=== PATIENT | male | born 1955 | race Caucasian/White ===

== ENCOUNTER 2019-09-27 09:27 | Inpatient (IN) | payer MEDICARE, MEDICAID ==
[~2019-09-27] VITALS: Ht 170.2 cm; Wt 72.0 kg
[2019-09-27] VITALS (10 sets, daily range): BP systolic 137–153; BP diastolic 49–83
[~2019-09-27 09:27] MED LIST: ASPI-1198 PO; BUME1TAB34 PO; CALC667C PO; ERGO500044 PO; METO100T14 PO; NIFE90TA45 PO; SIMV-43 PO
[2019-09-27] MEDS ORDERED: HYDR-4455 PO (10:05)
[2019-09-27] MEDS ORDERED: ACET-2247 PO (10:05)
[2019-09-27] MEDS ORDERED: FOLI0.8T22 PO (10:05)
[2019-09-27] MEDS ORDERED: ERGO500054 PO (10:05)
[2019-09-27] MEDS ORDERED: ISON300 PO (10:05)
[2019-09-27] MEDS ORDERED: LISI-662 PO (10:05)
[2019-09-27] MEDS ORDERED: LACT30L PO (10:05)
[2019-09-27] MEDS ORDERED: CLON0.1T2 PO (10:05)
[2019-09-27] MEDS ORDERED: BISA10SU11 PR (10:05)
[2019-09-27] MEDS ORDERED: SENN-2 PO (10:05)
[2019-09-27] MEDS ORDERED: AMLO10TA7 PO (10:05)
[2019-09-27] MEDS ORDERED: HYDR-2924 PO (10:05)
[2019-09-27] MEDS ORDERED: INSU100V SQ (10:05)
[2019-09-27] MEDS ORDERED: PHOSLOC PO (10:05)
[2019-09-27] MEDS ORDERED: INSLAN SQ (10:05)
[2019-09-27] MEDS ORDERED: ATOR40TA28 PO (10:05)
[2019-09-27] MEDS ORDERED: FAMO20 PO (10:05)
[2019-09-27] MEDS ORDERED: PYRI50 PO (10:05)
[2019-09-27] MEDS ORDERED: ONDA-104 PO (10:05)
[2019-09-27 10:21] LABS: BASOPHILS % (AUTO) 1.2 % (0.0-2.0); EOSINOPHILS % (AUTO) 3.9 % (1.0-6.0); LYMPHOCYTES % (AUTO) 12.1 % (22.0-44.0); MEAN CORPUSCULAR HEMOGLOBIN 31.8 pg (26.0-34.0); MEAN CORPUSCULAR HGB CONC 33.7 G/dL (31.0-37.0); MEAN CORPUSCULAR VOLUME 95 fL (80-100); MONOCYTES # (AUTO) 0.5 K/uL (0.1-1.0); MONOCYTES % (AUTO) 6.5 % (2.0-9.0); NEUTROPHILS # (AUTO) 6.4 K/uL (1.8-7.7); NEUTROPHILS % (AUTO) 76.3 % (40.0-70.0); PLATELET COUNT (AUTO) 504 K/uL (150-450); RED BLOOD CELL COUNT(AUTO) 1.87 MIL/uL (4.50-5.90); RED CELL DISTRIBUTION WIDTH 16.2 % (11.5-14.5)
[2019-09-27 10:23] LABS: CALCIUM, TOTAL 8.9 mg/dL (8.8-10.5); CREATININE 6.14 mg/dL (0.60-1.30); POTASSIUM 4.3 mmol/L (3.5-5.1)
[2019-09-27 10:24] LABS: HEMATOCRIT 17.7 % (41-53); HEMOGLOBIN 5.9 g/dL (13.5-17.5)
[2019-09-27] MEDS ORDERED: ACETAMINOPHEN 325 MG TABLET PO PRN (10:45)
[2019-09-27] MEDS ORDERED: BISACODYL 10 MG RECTAL RECTAL SUPPOSITORY PR PRN (10:45)
[2019-09-27 10:46] LABS: ALBUMIN 2.4 g/dL (3.4-5.0); BILIRUBIN,TOTAL 0.4 mg/dL (0.1-1.0); TOTAL PROTEIN, SERUM 7.8 g/dL (6.4-8.2)
[2019-09-27] MEDS ORDERED: DEXTROSE 50%-WATER 25 GM/50 ML SYRINGE IVP PRN (11:00)
[2019-09-27] MEDS ORDERED: SODIUM CHLORIDE 0.9% 250 ML IV ONE (11:55)
[2019-09-27] MEDS ORDERED: EPOETIN ALFA 10,000 UNITS/ML 2 ML VIAL SQ ONE (12:15)
[2019-09-27] MEDS ORDERED: FERROUS SULFATE 325 MG EC TABLET PO SCH (17:30)
[2019-09-27] MEDS: FERROUS SULFATE 325 MG EC TABLET PO SCH ×2 (17:45→18:49)
[2019-09-27 20:58] LABS: GLUCOMETER DEV NAME(LOC) 5N.2; GLUCOSE,POINT OF CARE 101 MG/DL (70-110)
[2019-09-27] MEDS: DOCUSATE SODIUM 100 MG CAPSULE PO SCH (21:00)
[2019-09-27] MEDS: ATORVASTATIN CALCIUM 20 MG TABLET PO SCH (21:03)
[2019-09-27 22:21] LABS: GLUCOMETER DEV NAME(LOC) 5N.2; GLUCOSE,POINT OF CARE 209 MG/DL (70-110)
[2019-09-28 04:26] VITALS: BP 157/71
[2019-09-28 07:32] LABS: GLUCOMETER DEV NAME(LOC) 5S.2A; GLUCOSE,POINT OF CARE 124 MG/DL (70-110)
[2019-09-28 07:47] VITALS: BP 155/66
[2019-09-28 08:35] LABS: BASOPHILS % (AUTO) 1.2 % (0.0-2.0); EOSINOPHILS % (AUTO) 2.6 % (1.0-6.0); HEMATOCRIT 22.8 % (41-53); HEMOGLOBIN 7.9 g/dL (13.5-17.5); MEAN CORPUSCULAR HEMOGLOBIN 31.7 pg (26.0-34.0); MEAN CORPUSCULAR HGB CONC 34.5 G/dL (31.0-37.0); MEAN CORPUSCULAR VOLUME 92 fL (80-100); MONOCYTES # (AUTO) 0.7 K/uL (0.1-1.0); MONOCYTES % (AUTO) 6.5 % (2.0-9.0); NEUTROPHILS # (AUTO) 8.2 K/uL (1.8-7.7); NEUTROPHILS % (AUTO) 79.7 % (40.0-70.0); PLATELET COUNT (AUTO) 536 K/uL (150-450); RED BLOOD CELL COUNT(AUTO) 2.49 MIL/uL (4.50-5.90); RED CELL DISTRIBUTION WIDTH 16.1 % (11.5-14.5)
[2019-09-28 08:39] LABS: CALCIUM, TOTAL 8.8 mg/dL (8.8-10.5); CREATININE 4.32 mg/dL (0.60-1.30)
[2019-09-28] MEDS: FERROUS SULFATE 325 MG EC TABLET PO SCH ×2 (08:51→12:19)
[2019-09-28] MEDS: ASPIRIN 81 MG CHEWABLE TABLET PO SCH (08:51)
[2019-09-28] MEDS: DOCUSATE SODIUM 100 MG CAPSULE PO SCH ×2 (08:51→21:30)
[2019-09-28] MEDS: AmLODIPine BESYLATE 10 MG TABLET PO SCH (08:51)
[2019-09-28] MEDS ORDERED: FAMOTIDINE 20 MG TABLET PO SCH (09:00)
[2019-09-28 11:18] VITALS: BP 153/72
[2019-09-28] MEDS: INSULIN LISPRO 100 UNITS/ML SQ PRN ×2 (12:28→21:44)
[2019-09-28 16:05] VITALS: BP 153/60
[2019-09-28 19:38] VITALS: BP 138/69
[2019-09-28] MEDS: ATORVASTATIN CALCIUM 20 MG TABLET PO SCH (21:30)
[2019-09-29 00:20] VITALS: BP 152/78
[2019-09-29 01:53] LABS: GLUCOMETER DEV NAME(LOC) 5N.2; GLUCOSE,POINT OF CARE 173 MG/DL (70-110)
[2019-09-29 01:53] LABS: GLUCOMETER DEV NAME(LOC) 5N.2; GLUCOSE,POINT OF CARE 217 MG/DL (70-110)
[2019-09-29 05:17] VITALS: BP 153/69
[2019-09-29 07:14] LABS: BASOPHILS % (AUTO) 0.8 % (0.0-2.0); EOSINOPHILS % (AUTO) 3.1 % (1.0-6.0); HEMATOCRIT 22.5 % (41-53); HEMOGLOBIN 7.6 g/dL (13.5-17.5); LYMPHOCYTES # (AUTO) 1.1 K/uL (1.0-4.8); LYMPHOCYTES % (AUTO) 9.6 % (22.0-44.0); MEAN CORPUSCULAR HGB CONC 33.8 G/dL (31.0-37.0); MEAN CORPUSCULAR VOLUME 92 fL (80-100); MONOCYTES # (AUTO) 0.8 K/uL (0.1-1.0); MONOCYTES % (AUTO) 6.6 % (2.0-9.0); NEUTROPHILS # (AUTO) 9.1 K/uL (1.8-7.7); NEUTROPHILS % (AUTO) 79.9 % (40.0-70.0); PLATELET COUNT (AUTO) 495 K/uL (150-450); RED BLOOD CELL COUNT(AUTO) 2.45 MIL/uL (4.50-5.90); RED CELL DISTRIBUTION WIDTH 16.5 % (11.5-14.5)
[2019-09-29 07:32] VITALS: BP 163/77
[2019-09-29] MEDS ORDERED: SODIUM CHLORIDE 0.9% 1,000 ML ONE (08:16)
[2019-09-29 09:34] LABS: INR 1.2 (0.9-1.1); PROTHROMBIN TIME 11.7 SEC (9.4-11.6)
[2019-09-29] MEDS ORDERED: OMEPRAZOLE 20 MG CAPSULE PO SCH (10:15)
[2019-09-29] MEDS ORDERED: SODIUM CHLORIDE 0.9% 2,000 ML ONE (11:35)
[2019-09-29] MEDS ORDERED: PROPOFOL 1% 20 ML VIAL IVP ONE (12:00)
[2019-09-29] MEDS ORDERED: LIDOCAINE/PF 2% 5 ML SYRINGE IVP ONE (12:00)
[2019-09-29 12:11] VITALS: BP 142/78
[2019-09-29] MEDS: AmLODIPine BESYLATE 10 MG TABLET PO SCH (15:03)
[2019-09-29] MEDS: DOCUSATE SODIUM 100 MG CAPSULE PO SCH (15:54)
[2019-09-29] MEDS: ASPIRIN 81 MG CHEWABLE TABLET PO SCH (15:56)
[2019-09-29 19:59] LABS: GLUCOMETER DEV NAME(LOC) 5S.2A; GLUCOSE,POINT OF CARE 110 MG/DL (70-110)
[2019-09-29 19:59] LABS: GLUCOMETER DEV NAME(LOC) 5S.2A; GLUCOSE,POINT OF CARE 230 MG/DL (70-110)
[2019-09-29 20:00] LABS: GLUCOMETER DEV NAME(LOC) 5S.2A; GLUCOSE,POINT OF CARE 126 MG/DL (70-110)
[2019-10-01] MEDS ORDERED: EPOETIN ALFA 10,000 UNITS/ML VIAL SQ SCH (09:00)
== END 2019-09-29 17:15 | DRG 377 ==
LOC: EMS 09:30 → AHU 12:29 → ICU 15:03 → 5S 16:42
PROVIDERS: ADMIT Internal Medicine; ATTEND Internal Medicine
PROC: 30233N1 Transfusion of Nonautologous Red Blood Cells into Peripheral Vein, Percutaneous Approach (ICD-10-PCS; 2019-09-27)
PROC: 0DB98ZZ Excision of Duodenum, Via Natural or Artificial Opening Endoscopic (ICD-10-PCS; principal; 2019-09-29 09:45)
DX: K29.01 Acute gastritis with bleeding (principal); N18.6 End stage renal disease; E43 Unspecified severe protein-calorie malnutrition; I12.0 Hypertensive chronic kidney disease with stage 5 chronic kidney disease or end stage renal disease; N25.81 Secondary hyperparathyroidism of renal origin; D63.1 Anemia in chronic kidney disease; I25.10 Atherosclerotic heart disease of native coronary artery without angina pectoris; E11.51 Type 2 diabetes mellitus with diabetic peripheral angiopathy without gangrene; E11.22 Type 2 diabetes mellitus with diabetic chronic kidney disease; E11.319 Type 2 diabetes mellitus with unspecified diabetic retinopathy without macular edema; E78.00 Pure hypercholesterolemia, unspecified; E78.5 Hyperlipidemia, unspecified; K59.00 Constipation, unspecified; K31.7 Polyp of stomach and duodenum; Z79.4 Long term (current) use of insulin; Z83.3 Family history of diabetes mellitus; Z86.73 Personal history of transient ischemic attack (TIA), and cerebral infarction without residual deficits; Z89.511 Acquired absence of right leg below knee; Z89.512 Acquired absence of left leg below knee; Z91.81 History of falling; Z99.2 Dependence on renal dialysis; Z68.24 Body mass index [BMI] 24.0-24.9, adult; D64.9 Anemia, unspecified
CPT/HCPCS: 36430; 82271; 86850; 86900; 86901; 86920; 87081; 87340; 88305; 88312; 88313; 93005; J0885; J2704; J3490; J7030; J7050; P9016

== ENCOUNTER → 2020-07-07 | Outpatient (CLI) | payer MEDICARE, MEDICAID ==
[~2020-07-07] MED LIST changes: +ACET-2865 PO; +AMLO-258 PO; +ATOR40TA28 PO; +BISA10SU11 PR; -BUME1TAB34 PO; -CALC667C PO; +CLON0.1T83 PO; -ERGO500044 PO; +ERGO500054 PO; +FAMO20 PO; +FOLI0.8T22 PO; +HYDR-2924 PO; +HYDR-4455 PO; +INSLAN SQ; +INSU100V SQ; +ISON300 PO; +LACT30L PO; +LISI-662 PO; -METO100T14 PO; -NIFE90TA45 PO; +ONDA-104 PO; +PHOSLOC PO; +PYRI50 PO; +SENN-2 PO; -SIMV-43 PO
== END | disposition home or self-care (01) ==
LOC: HBOWC 08:46
PROVIDERS: ATTEND Surgery Plastic and Reconstructive Surgery
DX: S61.205A Unspecified open wound of left ring finger without damage to nail, initial encounter (principal); E11.22 Type 2 diabetes mellitus with diabetic chronic kidney disease; I12.0 Hypertensive chronic kidney disease with stage 5 chronic kidney disease or end stage renal disease; N18.6 End stage renal disease; D63.1 Anemia in chronic kidney disease; E78.5 Hyperlipidemia, unspecified; E11.51 Type 2 diabetes mellitus with diabetic peripheral angiopathy without gangrene; R26.9 Unspecified abnormalities of gait and mobility; E11.319 Type 2 diabetes mellitus with unspecified diabetic retinopathy without macular edema; E43 Unspecified severe protein-calorie malnutrition; Z68.22 Body mass index [BMI] 22.0-22.9, adult; Z79.82 Long term (current) use of aspirin; Z79.4 Long term (current) use of insulin; Z89.512 Acquired absence of left leg below knee; Z89.511 Acquired absence of right leg below knee; Z99.2 Dependence on renal dialysis; Z87.891 Personal history of nicotine dependence; Z86.73 Personal history of transient ischemic attack (TIA), and cerebral infarction without residual deficits; W22.8XXA Striking against or struck by other objects, initial encounter; Y93.89 Activity, other specified; Y92.89 Other specified places as the place of occurrence of the external cause; Y99.8 Other external cause status
CPT/HCPCS: 11044; G0463

== ENCOUNTER → 2020-07-14 | Outpatient (CLI) | payer MEDICARE, MEDICAID | END | disposition home or self-care (01) | LOC: HBOWC 08:38 | PROVIDERS: ATTEND Surgery Plastic and Reconstructive Surgery | DX: S61.205D Unspecified open wound of left ring finger without damage to nail, subsequent encounter (principal); E11.22 Type 2 diabetes mellitus with diabetic chronic kidney disease; I12.0 Hypertensive chronic kidney disease with stage 5 chronic kidney disease or end stage renal disease; N18.6 End stage renal disease; D63.1 Anemia in chronic kidney disease; E78.5 Hyperlipidemia, unspecified; E11.51 Type 2 diabetes mellitus with diabetic peripheral angiopathy without gangrene; R26.9 Unspecified abnormalities of gait and mobility; E11.319 Type 2 diabetes mellitus with unspecified diabetic retinopathy without macular edema; E43 Unspecified severe protein-calorie malnutrition; Z68.22 Body mass index [BMI] 22.0-22.9, adult; Z79.82 Long term (current) use of aspirin; Z79.4 Long term (current) use of insulin; Z89.512 Acquired absence of left leg below knee; Z89.511 Acquired absence of right leg below knee; Z99.2 Dependence on renal dialysis; Z87.891 Personal history of nicotine dependence; Z86.73 Personal history of transient ischemic attack (TIA), and cerebral infarction without residual deficits; W22.8XXD Striking against or struck by other objects, subsequent encounter | CPT/HCPCS: G0463; Z7500 ==

== ENCOUNTER → 2020-07-14 | Outpatient (CLI) | payer MEDICARE, MEDICAID | END | disposition home or self-care (01) | LOC: RADPV 10:27 | PROVIDERS: ATTEND Surgery Plastic and Reconstructive Surgery | DX: S61.205A Unspecified open wound of left ring finger without damage to nail, initial encounter (principal); R22.32 Localized swelling, mass and lump, left upper limb; X58.XXXA Exposure to other specified factors, initial encounter; Y93.89 Activity, other specified; Y92.89 Other specified places as the place of occurrence of the external cause; Y99.8 Other external cause status | CPT/HCPCS: 73130-TC ==

== ENCOUNTER → 2020-07-21 | Outpatient (CLI) | payer MEDICARE, MEDICAID | END | disposition home or self-care (01) | LOC: HBOWC 09:04 | PROVIDERS: ATTEND Surgery Plastic and Reconstructive Surgery | DX: S61.205D Unspecified open wound of left ring finger without damage to nail, subsequent encounter (principal); E11.22 Type 2 diabetes mellitus with diabetic chronic kidney disease; I12.0 Hypertensive chronic kidney disease with stage 5 chronic kidney disease or end stage renal disease; N18.6 End stage renal disease; D63.1 Anemia in chronic kidney disease; E78.5 Hyperlipidemia, unspecified; E11.51 Type 2 diabetes mellitus with diabetic peripheral angiopathy without gangrene; R26.9 Unspecified abnormalities of gait and mobility; E11.319 Type 2 diabetes mellitus with unspecified diabetic retinopathy without macular edema; E43 Unspecified severe protein-calorie malnutrition; Z68.22 Body mass index [BMI] 22.0-22.9, adult; Z79.82 Long term (current) use of aspirin; Z79.4 Long term (current) use of insulin; Z89.512 Acquired absence of left leg below knee; Z89.511 Acquired absence of right leg below knee; Z99.2 Dependence on renal dialysis; Z87.891 Personal history of nicotine dependence; Z86.73 Personal history of transient ischemic attack (TIA), and cerebral infarction without residual deficits; W22.8XXD Striking against or struck by other objects, subsequent encounter | CPT/HCPCS: 11043 ==

== ENCOUNTER → 2020-08-04 | Outpatient (CLI) | payer MEDICARE, MEDICAID | END | disposition home or self-care (01) | LOC: HBOWC 08:49 | PROVIDERS: ATTEND Surgery Plastic and Reconstructive Surgery | DX: S61.205D Unspecified open wound of left ring finger without damage to nail, subsequent encounter (principal); E11.622 Type 2 diabetes mellitus with other skin ulcer; L98.495 Non-pressure chronic ulcer of skin of other sites with muscle involvement without evidence of necrosis; E11.51 Type 2 diabetes mellitus with diabetic peripheral angiopathy without gangrene; E11.22 Type 2 diabetes mellitus with diabetic chronic kidney disease; I12.0 Hypertensive chronic kidney disease with stage 5 chronic kidney disease or end stage renal disease; N18.6 End stage renal disease; D63.1 Anemia in chronic kidney disease; E78.5 Hyperlipidemia, unspecified; E11.319 Type 2 diabetes mellitus with unspecified diabetic retinopathy without macular edema; Z79.82 Long term (current) use of aspirin; Z99.2 Dependence on renal dialysis; Z87.891 Personal history of nicotine dependence; Z79.4 Long term (current) use of insulin; Z86.73 Personal history of transient ischemic attack (TIA), and cerebral infarction without residual deficits; Z89.511 Acquired absence of right leg below knee; Z89.512 Acquired absence of left leg below knee; W22.8XXD Striking against or struck by other objects, subsequent encounter | CPT/HCPCS: 11043 ==

== ENCOUNTER → 2020-08-18 | Outpatient (CLI) | payer MEDICARE, MEDICAID ==
[~2020-08-18] MED LIST changes: +ACETAMINOPHEN 325 MG TABLET ONE; +LIDOCAINE 2% 5 ML JELLY ONE
== END | disposition home or self-care (01) ==
LOC: HBOWC 08:56
PROVIDERS: ATTEND Surgery Plastic and Reconstructive Surgery
DX: S61.205D Unspecified open wound of left ring finger without damage to nail, subsequent encounter (principal); E11.622 Type 2 diabetes mellitus with other skin ulcer; L98.495 Non-pressure chronic ulcer of skin of other sites with muscle involvement without evidence of necrosis; E11.51 Type 2 diabetes mellitus with diabetic peripheral angiopathy without gangrene; E11.22 Type 2 diabetes mellitus with diabetic chronic kidney disease; I13.0 Hypertensive heart and chronic kidney disease with heart failure and stage 1 through stage 4 chronic kidney disease, or unspecified chronic kidney disease; N18.6 End stage renal disease; I12.0 Hypertensive chronic kidney disease with stage 5 chronic kidney disease or end stage renal disease; D63.1 Anemia in chronic kidney disease; E78.5 Hyperlipidemia, unspecified; H53.8 Other visual disturbances; R26.9 Unspecified abnormalities of gait and mobility; E11.319 Type 2 diabetes mellitus with unspecified diabetic retinopathy without macular edema; E43 Unspecified severe protein-calorie malnutrition; Z68.22 Body mass index [BMI] 22.0-22.9, adult; Z99.2 Dependence on renal dialysis; Z87.891 Personal history of nicotine dependence; Z79.4 Long term (current) use of insulin; Z79.82 Long term (current) use of aspirin; Z86.73 Personal history of transient ischemic attack (TIA), and cerebral infarction without residual deficits; Z89.511 Acquired absence of right leg below knee; Z89.512 Acquired absence of left leg below knee; W22.8XXD Striking against or struck by other objects, subsequent encounter
CPT/HCPCS: 11043; Z7610

== ENCOUNTER 2020-08-24 19:22 | Inpatient (IN) | payer MEDICARE, MEDICAID ==
[~2020-08-24] VITALS: Ht 172.7 cm; Wt 59.0 kg
[~2020-08-24 19:22] MED LIST changes: -ACETAMINOPHEN 325 MG TABLET ONE; -CLON0.1T83 PO; -HYDR-2924 PO; -INSLAN SQ; -LIDOCAINE 2% 5 ML JELLY ONE; -LISI-662 PO
[2020-08-24] MEDS ORDERED: PIPERACILLIN/TAZO 3.375 GM/D5W 50 ML IV ONE (20:45)
[2020-08-24] MEDS ORDERED: ACETAMINOPHEN 325 MG TABLET PO PRN ×2 (20:45→21:15)
[2020-08-24] MEDS ORDERED: 0.9% SODIUM CHLORIDE 10 ML SYRINGE IVP PRN (20:45)
[2020-08-24] MEDS ORDERED: ONDANSETRON HCL 4 MG/2 ML VIAL IVP PRN ×2 (20:45→21:15)
[2020-08-24 20:49] LABS: CALCIUM, TOTAL 9.4 mg/dL (8.8-10.5); CREATININE 5.42 mg/dL (0.60-1.30); POTASSIUM 4.2 mmol/L (3.5-5.1)
[2020-08-24 20:56] LABS: ALBUMIN 3.5 g/dL (3.4-5.0); BILIRUBIN,TOTAL 0.4 mg/dL (0.1-1.0); TOTAL PROTEIN, SERUM 8.8 g/dL (6.4-8.2)
[2020-08-24 20:57] LABS: BASOPHILS % (AUTO) 0.7 % (0.0-2.0); EOSINOPHILS % (AUTO) 2.8 % (1.0-6.0); HEMATOCRIT 30.1 % (41-53); HEMOGLOBIN 9.8 g/dL (13.5-17.5); LYMPHOCYTES % (AUTO) 8.8 % (22.0-44.0); MEAN CORPUSCULAR HEMOGLOBIN 31.2 pg (26.0-34.0); MEAN CORPUSCULAR HGB CONC 32.6 G/dL (31.0-37.0); MEAN CORPUSCULAR VOLUME 96 fL (80-100); MONOCYTES % (AUTO) 8.5 % (2.0-9.0); NEUTROPHILS # (AUTO) 8.9 K/uL (1.8-7.7); NEUTROPHILS % (AUTO) 79.2 % (40.0-70.0); PLATELET COUNT (AUTO) 299 K/uL (150-450); RED BLOOD CELL COUNT(AUTO) 3.14 MIL/uL (4.50-5.90); RED CELL DISTRIBUTION WIDTH 17.6 % (11.5-14.5)
[2020-08-24 21:03] LABS: LACTIC ACID 0.7 mmol/L (0.4-2.0)
[2020-08-24] MEDS ORDERED: ENALAPRILAT DIHYDRATE 1.25 MG/ML VIAL IVP PRN (21:15)
[2020-08-24] MEDS ORDERED: MAGNESIUM HYDROXIDE SUSPENSION 30 ML UDCUP PO PRN (21:15)
[2020-08-24] MEDS ORDERED: BISACODYL 10 MG RECTAL RECTAL SUPPOSITORY PR PRN (21:15)
[2020-08-24] MEDS ORDERED: ZOLPIDEM TARTRATE 5 MG TABLET PO PRN (21:15)
[2020-08-24 21:19] LABS: PROTHROMBIN TIME 10.3 SEC (9.4-11.6)
[2020-08-24 21:32] LABS: COVID AG,FIA SOURCE NASOPHARYNGEAL
[2020-08-25] MEDS: HEPARIN SODIUM,PORCINE 5,000 UNITS/ML VIAL SQ SCH ×4 (00:31→23:23)
[2020-08-25] MEDS: HYDROCODONE/ACETAMINOPHEN 5-325 MG TABLET PO PRN ×2 (00:32→09:53)
[2020-08-25 04:20] VITALS: BP 155/62
[2020-08-25] MEDS: PIPERACILLIN SODIUM/TAZOBACTAM 2.25 GM in DEXTROSE 5%-WATER 50 ML IV SCH ×3 (04:37→21:39)
[2020-08-25] MEDS: MORPHINE SULFATE 2 MG/ML SYRINGE IVP PRN ×2 (05:44→11:42)
[2020-08-25 05:53] LABS: GLUCOMETER DEV NAME(LOC) 5N.3; GLUCOSE,POINT OF CARE 139 MG/DL (70-110)
[2020-08-25 07:44] VITALS: BP 153/55
[2020-08-25] MEDS: HydrALAZINE HCL 50 MG TABLET PO SCH ×3 (08:36→20:38)
[2020-08-25] MEDS: AmLODIPine BESYLATE 10 MG TABLET PO SCH (08:36)
[2020-08-25] MEDS: LISINOPRIL 20 MG TABLET PO SCH (08:36)
[2020-08-25] MEDS: CALCIUM ACETATE 667 MG CAPSULE PO SCH ×3 (08:37→18:08)
[2020-08-25] MEDS: ASPIRIN 81 MG CHEWABLE TABLET PO SCH (08:37)
[2020-08-25] MEDS: DOCUSATE SODIUM 100 MG CAPSULE PO SCH ×2 (08:37→20:38)
[2020-08-25] MEDS: ISONIAZID 300 MG TABLET PO SCH (08:37)
[2020-08-25] MEDS: PANTOPRAZOLE SODIUM 40 MG DR TABLET PO SCH (08:37)
[2020-08-25] MEDS: PYRIDOXINE HCL 50 MG TABLET PO SCH (08:37)
[2020-08-25] MEDS: CloNIDine HCL 0.1 MG TABLET PO SCH ×2 (08:37→20:38)
[2020-08-25] MEDS ORDERED: ATOR-2 PO (11:12)
[2020-08-25] MEDS ORDERED: LISI40TA4 PO (11:12)
[2020-08-25] MEDS ORDERED: ERGO500054 PO (11:12)
[2020-08-25 11:20] VITALS: BP 158/50
[2020-08-25] MEDS ORDERED: DEXTROSE 50%-WATER 25 GM/50 ML SYRINGE IVP PRN (12:00)
[2020-08-25] MEDS: VITAMIN B COMP/VIT C/FOLIC ACID CAPSULE PO SCH (12:23)
[2020-08-25] MEDS: INSULIN LISPRO 100 UNITS/ML SQ PRN ×3 (12:33→20:40)
[2020-08-25 15:17] VITALS: BP 139/45
[2020-08-25] MEDS: HYDROmorphone 2 MG/ML SYRINGE IVP PRN ×2 (15:49→21:39)
[2020-08-25] MEDS ORDERED: SODIUM CHLORIDE 0.9% 500 ML IV ONE (20:19)
[2020-08-25 20:25] VITALS: BP 181/61
[2020-08-25] MEDS: INSULIN GLARGINE,HUM.REC.ANLOG 100 UNITS/ML SQ SCH (20:39)
[2020-08-25 20:54] LABS: GLUCOMETER DEV NAME(LOC) 5N.3; GLUCOSE,POINT OF CARE 203 MG/DL (70-110)
[2020-08-25 20:55] LABS: GLUCOMETER DEV NAME(LOC) 5N.3; GLUCOSE,POINT OF CARE 165 MG/DL (70-110)
[2020-08-25 23:25] VITALS: BP 135/70
[2020-08-26] VITALS (7 sets, daily range): BP systolic 144–179; BP diastolic 45–73
[2020-08-26 00:05] LABS: GLUCOMETER DEV NAME(LOC) 6N.2; GLUCOSE,POINT OF CARE 218 MG/DL (70-110)
[2020-08-26] MEDS: PIPERACILLIN SODIUM/TAZOBACTAM 2.25 GM in DEXTROSE 5%-WATER 50 ML IV SCH ×3 (05:41→20:16)
[2020-08-26 06:20] LABS: GLUCOMETER DEV NAME(LOC) 6S.1; GLUCOSE,POINT OF CARE 114 MG/DL (70-110)
[2020-08-26 07:02] LABS: CALCIUM, TOTAL 9.6 mg/dL (8.8-10.5); CREATININE 7.83 mg/dL (0.60-1.30); PHOSPHORUS 5.4 mg/dL (2.5-4.9); POTASSIUM 4.9 mmol/L (3.5-5.1)
[2020-08-26] MEDS: DOCUSATE SODIUM 100 MG CAPSULE PO SCH ×2 (08:16→20:17)
[2020-08-26] MEDS: HYDROCODONE/ACETAMINOPHEN 5-325 MG TABLET PO PRN ×3 (08:17→20:16)
[2020-08-26] MEDS: HEPARIN SODIUM,PORCINE 5,000 UNITS/ML VIAL SQ SCH ×3 (08:17→23:08)
[2020-08-26] MEDS: VITAMIN B COMP/VIT C/FOLIC ACID CAPSULE PO SCH (08:18)
[2020-08-26] MEDS: CALCIUM ACETATE 667 MG CAPSULE PO SCH ×3 (08:18→18:52)
[2020-08-26] MEDS: PYRIDOXINE HCL 50 MG TABLET PO SCH (08:18)
[2020-08-26] MEDS: ISONIAZID 300 MG TABLET PO SCH (08:19)
[2020-08-26] MEDS: HYDROmorphone 2 MG/ML SYRINGE IVP PRN ×3 (08:40→21:30)
[2020-08-26] MEDS: ASPIRIN 81 MG CHEWABLE TABLET PO SCH (08:40)
[2020-08-26] MEDS: PANTOPRAZOLE SODIUM 40 MG DR TABLET PO SCH (08:40)
[2020-08-26] MEDS: LISINOPRIL 20 MG TABLET PO SCH (09:00)
[2020-08-26] MEDS: HydrALAZINE HCL 50 MG TABLET PO SCH ×3 (09:00→21:22)
[2020-08-26] MEDS: AmLODIPine BESYLATE 10 MG TABLET PO SCH (09:00)
[2020-08-26] MEDS: CloNIDine HCL 0.1 MG TABLET PO SCH ×2 (09:00→21:22)
[2020-08-26] MEDS: INSULIN LISPRO 100 UNITS/ML SQ PRN ×3 (12:09→21:27)
[2020-08-26 14:48] LABS: GLUCOMETER DEV NAME(LOC) 6S.1; GLUCOSE,POINT OF CARE 152 MG/DL (70-110)
[2020-08-26 20:26] LABS: GLUCOMETER DEV NAME(LOC) 6S.1; GLUCOSE,POINT OF CARE 168 MG/DL (70-110)
[2020-08-26] MEDS: INSULIN GLARGINE,HUM.REC.ANLOG 100 UNITS/ML SQ SCH (21:27)
[2020-08-27] MEDS: HYDROmorphone 2 MG/ML SYRINGE IVP PRN ×3 (03:13→16:34)
[2020-08-27] MEDS: PIPERACILLIN SODIUM/TAZOBACTAM 2.25 GM in DEXTROSE 5%-WATER 50 ML IV SCH ×2 (05:02→13:09)
[2020-08-27 05:40] VITALS: BP 159/56
[2020-08-27] MEDS ORDERED: SODIUM CHLORIDE 0.9% 1,000 ML ONE (05:42)
[2020-08-27 06:05] LABS: GLUCOMETER DEV NAME(LOC) 6N.2; GLUCOSE,POINT OF CARE 200 MG/DL (70-110)
[2020-08-27 06:05] LABS: GLUCOMETER DEV NAME(LOC) 6S.1; GLUCOSE,POINT OF CARE 132 MG/DL (70-110)
[2020-08-27] MEDS ORDERED: SODIUM CHLORIDE 0.9% 1,000 ML IV ONE (06:30)
[2020-08-27] MEDS ORDERED: BUPIVACAINE HCL/PF 0.25% 30 ML VIAL ONE (06:56)
[2020-08-27] MEDS ORDERED: MEPERIDINE-PF 25 MG/ML VIAL IVP PRN (07:00)
[2020-08-27] MEDS ORDERED: FentaNYL CITRATE-PF 100 MCG/2 ML VIAL IVP PRN (07:00)
[2020-08-27] MEDS ORDERED: HYDROmorphone 2 MG/ML SYRINGE IVP PRN (07:00)
[2020-08-27] MEDS ORDERED: POVIDONE-IODINE 30 GM OINTMENT TP ONE (07:58)
[2020-08-27] MEDS ORDERED: OXYGEN THERAPY IH SCH (08:00)
[2020-08-27 09:00] VITALS: BP 169/69
[2020-08-27] MEDS ORDERED: EPOETIN ALFA 10,000 UNITS/ML 2 ML VIAL SQ SCH (09:00)
[2020-08-27] MEDS: ASPIRIN 81 MG CHEWABLE TABLET PO SCH (09:40)
[2020-08-27] MEDS: CloNIDine HCL 0.1 MG TABLET PO SCH (09:40)
[2020-08-27] MEDS: ISONIAZID 300 MG TABLET PO SCH (09:41)
[2020-08-27] MEDS: PYRIDOXINE HCL 50 MG TABLET PO SCH (09:41)
[2020-08-27] MEDS: VITAMIN B COMP/VIT C/FOLIC ACID CAPSULE PO SCH (09:41)
[2020-08-27] MEDS: AmLODIPine BESYLATE 10 MG TABLET PO SCH (09:41)
[2020-08-27] MEDS: CALCIUM ACETATE 667 MG CAPSULE PO SCH ×2 (09:41→13:08)
[2020-08-27] MEDS: PANTOPRAZOLE SODIUM 40 MG DR TABLET PO SCH (09:42)
[2020-08-27] MEDS: HydrALAZINE HCL 50 MG TABLET PO SCH ×2 (09:42→17:09)
[2020-08-27] MEDS: HEPARIN SODIUM,PORCINE 5,000 UNITS/ML VIAL SQ SCH ×3 (09:42→16:00)
[2020-08-27] MEDS: LISINOPRIL 20 MG TABLET PO SCH (09:42)
[2020-08-27] MEDS: DOCUSATE SODIUM 100 MG CAPSULE PO SCH (09:43)
[2020-08-27 11:42] LABS: GLUCOMETER DEV NAME(LOC) 6N.2; GLUCOSE,POINT OF CARE 146 MG/DL (70-110)
[2020-08-27] MEDS: INSULIN LISPRO 100 UNITS/ML SQ PRN (11:45)
[2020-08-27] MEDS ORDERED: FentaNYL CITRATE-PF 100 MCG/2 ML VIAL IVP ONE (12:00)
[2020-08-27] MEDS ORDERED: MIDAZOLAM HCL 2 MG/2 ML VIAL IVP ONE (12:00)
[2020-08-27] MEDS ORDERED: 0.9% SODIUM CHLORIDE 10 ML VIAL IVP ONE (12:00)
[2020-08-27] MEDS ORDERED: LIDOCAINE/PF 2% 5 ML VIAL INJ ONE (12:00)
[2020-08-27] MEDS ORDERED: PROPOFOL 1% 20 ML VIAL IVP ONE (12:00)
[2020-08-27] MEDS ORDERED: CEPH-582 PO (14:07)
[2020-08-27] MEDS: HYDROCODONE/ACETAMINOPHEN 5-325 MG TABLET PO PRN (14:53)
[2020-08-27 16:10] VITALS: BP 130/38
[2020-08-27 17:36] LABS: GLUCOMETER DEV NAME(LOC) 6N.2; GLUCOSE,POINT OF CARE 134 MG/DL (70-110)
[2020-09-23] MEDS ORDERED: ERGOCALCIFEROL (VIT D2) 50,000 UNITS [1,250 MCG] CAPSULE PO SCH ×2 (09:00)
[2020-09-28] MEDS ORDERED: ERGOCALCIFEROL (VIT D2) 50,000 UNITS [1,250 MCG] CAPSULE PO SCH (09:00)
== END 2020-08-27 18:00 | disposition home health service (06) | DRG 255 ==
LOC: EMS 19:22 → 5S 20:36 → 6N 08-25 19:34
PROVIDERS: ADMIT Internal Medicine; ATTEND Internal Medicine
PROC: 5A1D70Z Performance of Urinary Filtration, Intermittent, Less than 6 Hours Per Day (ICD-10-PCS; 2020-08-25)
PROC: 5A1D70Z Performance of Urinary Filtration, Intermittent, Less than 6 Hours Per Day (ICD-10-PCS; 2020-08-27)
PROC: 0X6T0Z1 Detachment at Left Ring Finger, High, Open Approach (ICD-10-PCS; principal; 2020-08-27 07:30)
DX: E11.52 Type 2 diabetes mellitus with diabetic peripheral angiopathy with gangrene (principal); N18.6 End stage renal disease; I12.0 Hypertensive chronic kidney disease with stage 5 chronic kidney disease or end stage renal disease; I96 Gangrene, not elsewhere classified; E11.22 Type 2 diabetes mellitus with diabetic chronic kidney disease; E11.65 Type 2 diabetes mellitus with hyperglycemia; D63.8 Anemia in other chronic diseases classified elsewhere; E55.9 Vitamin D deficiency, unspecified; Z99.3 Dependence on wheelchair; Z99.2 Dependence on renal dialysis; Z89.512 Acquired absence of left leg below knee; Z89.511 Acquired absence of right leg below knee; Z79.899 Other long term (current) drug therapy; Z03.818 Encounter for observation for suspected exposure to other biological agents ruled out
CPT/HCPCS: 83605; 84100; 87040; 87070; 87081; 87340; 87426; 93005; 99291; G0378; J0690; J0885; J1170; J1644; J1815; J2250; J2270; J2405; J2543; J2704; J3010; J3490; J7030; J7040; J7060; 36415-L1; 36415-TC; 71045-TC

== ENCOUNTER 2020-11-05 12:44 | Inpatient (IN) | payer MEDICARE, MEDICAID ==
[~2020-11-05] VITALS: Ht 175.3 cm; Wt 70.7 kg
[~2020-11-05 12:44] MED LIST changes: -ASPI-1198 PO; +ASPI-728 PO; -BISA10SU11 PR; +CARV12 PO; -FOLI0.8T22 PO; -HYDR-4455 PO; -ISON300 PO; -LACT30L PO; -ONDA-104 PO; -PYRI50 PO; -SENN-2 PO
[2020-11-05] MEDS ORDERED: FentaNYL CITRATE PF 100 MCG/2 ML VIAL IVP ONE ×2 (14:00→14:30)
[2020-11-05] MEDS ORDERED: HYDROmorphone 2 MG/ML VIAL IVP ONE (14:30)
[2020-11-05] MEDS ORDERED: ONDANSETRON HCL 4 MG/2 ML VIAL IVP ONE (15:45)
[2020-11-05 16:19] LABS: COVID AG,FIA SOURCE NASOPHARYNGEAL
[2020-11-05 16:20] LABS: BASOPHILS % (AUTO) 0.8 % (0.0-2.0); EOSINOPHILS % (AUTO) 0.6 % (1.0-6.0); LYMPHOCYTES # (AUTO) 0.6 K/uL (1.0-4.8); LYMPHOCYTES % (AUTO) 6.8 % (22.0-44.0); MEAN CORPUSCULAR HEMOGLOBIN 31.8 pg (26.0-34.0); MEAN CORPUSCULAR HGB CONC 33.2 G/dL (31.0-37.0); MEAN CORPUSCULAR VOLUME 96 fL (80-100); MONOCYTES # (AUTO) 0.5 K/uL (0.1-1.0); MONOCYTES % (AUTO) 5.6 % (2.0-9.0); NEUTROPHILS # (AUTO) 7.7 K/uL (1.8-7.7); PLATELET COUNT (AUTO) 243 K/uL (150-450); RED BLOOD CELL COUNT(AUTO) 2.04 MIL/uL (4.50-5.90); RED CELL DISTRIBUTION WIDTH 17.7 % (11.5-14.5)
[2020-11-05 16:27] LABS: HEMOGLOBIN 6.5 g/dL (13.5-17.5)
[2020-11-05 16:28] LABS: HEMATOCRIT 19.5 % (41-53); NEUTROPHILS % (AUTO) 86.2 % (40.0-70.0)
[2020-11-05] MEDS ORDERED: 0.9% SODIUM CHLORIDE 10 ML SYRINGE IVP PRN (16:30)
[2020-11-05] MEDS ORDERED: ACETAMINOPHEN 325 MG TABLET PO PRN (16:30)
[2020-11-05 16:39] LABS: CALCIUM, TOTAL 8.9 mg/dL (8.8-10.5); CREATININE 4.32 mg/dL (0.60-1.30); POTASSIUM 5.1 mmol/L (3.5-5.1)
[2020-11-05 16:41] LABS: INR 1.3 (0.9-1.1); PROTHROMBIN TIME 13.1 SEC (9.4-11.6)
[2020-11-05] MEDS ORDERED: ONDANSETRON HCL 4 MG/2 ML VIAL IVP PRN (16:45)
[2020-11-05] MEDS ORDERED: BISACODYL 10 MG RECTAL RECTAL SUPPOSITORY PR PRN (16:45)
[2020-11-05] MEDS ORDERED: DEXTROSE 50%-WATER 25 GM/50 ML SYRINGE IVP PRN (16:45)
[2020-11-05 16:47] LABS: ALBUMIN 2.9 g/dL (3.4-5.0); BILIRUBIN,TOTAL 0.5 mg/dL (0.1-1.0)
[2020-11-05] MEDS: MORPHINE SULFATE 2 MG/ML SYRINGE IVP PRN (18:10)
[2020-11-05 18:16] VITALS: BP 184/74
[2020-11-05] MEDS ORDERED: SODIUM CHLORIDE 0.9% 500 ML IV ONE (19:00)
[2020-11-05] MEDS ORDERED: SODIUM ZIRCONIUM CYCLOSILICATE 5 GM POWDER PACKET PO ONE (19:45)
[2020-11-05] MEDS: HYDROCODONE/ACETAMINOPHEN 5-325 MG TABLET PO PRN (20:27)
[2020-11-05] MEDS: DOCUSATE SODIUM 100 MG CAPSULE PO SCH (21:00)
[2020-11-05] MEDS ORDERED: HEPARIN SODIUM,PORCINE 5,000 UNITS/ML VIAL SQ SCH (21:00)
[2020-11-05] MEDS: ATORVASTATIN CALCIUM 40 MG TABLET PO SCH (21:11)
[2020-11-05] MEDS: CARVEDILOL 3.125 MG TABLET PO SCH (21:11)
[2020-11-05] MEDS: ONDANSETRON HCL 4 MG/2 ML VIAL IVP PRN (21:18)
[2020-11-05] MEDS: HYDROmorphone 2 MG/ML VIAL IVP PRN (21:31)
[2020-11-05 23:30] VITALS: BP_SYST 114; BP_SYST 119; BP_DIAS 56; BP_DIAS 58
[2020-11-05 23:45] VITALS: BP 118/40
[2020-11-06] VITALS (10 sets, daily range): BP systolic 111–161; BP diastolic 37–67
[2020-11-06] MEDS: HYDROmorphone 2 MG/ML VIAL IVP PRN (01:30)
[2020-11-06] MEDS: ONDANSETRON HCL 4 MG/2 ML VIAL IVP PRN (04:24)
[2020-11-06] MEDS ORDERED: SODIUM CL IRRIG SOLN BAG 3,000 ML IRRIG ONE (05:48)
[2020-11-06] MEDS ORDERED: MICROFIBRILLAR COLLAGEN 1 GM PACKAGE TP ONE ×2 (05:48→06:51)
[2020-11-06] MEDS ORDERED: MUPIROCIN CALCIUM 2% 22 GM OINTMENT ONE ×2 (05:48→08:18)
[2020-11-06] MEDS: MORPHINE SULFATE 2 MG/ML SYRINGE IVP PRN (05:48)
[2020-11-06] MEDS ORDERED: BUPIVACAINE HCL/PF 0.5% 30 ML VIAL ONE (05:48)
[2020-11-06] MEDS ORDERED: SODIUM CHLORIDE 0.9% 1,000 ML ONE ×2 (06:04→06:16)
[2020-11-06] MEDS ORDERED: BUPIVACAINE LIPOSOME/PF 1.3%-13.3MG/ML SUSPENSION 20 ML VIAL INJ ONE (06:30)
[2020-11-06] MEDS ORDERED: PHENYLEPHRINE 200 MG/D5%-WATER 250 ML IV PRN (06:30)
[2020-11-06] MEDS ORDERED: SODIUM CHLORIDE 0.9% 10 ML ONE (06:39)
[2020-11-06 06:42] LABS: BASOPHILS % (AUTO) 0.3 % (0.0-2.0); EOSINOPHILS % (AUTO) 0.1 % (1.0-6.0); HEMATOCRIT 22.1 % (41-53); HEMOGLOBIN 7.6 g/dL (13.5-17.5); LYMPHOCYTES # (AUTO) 0.5 K/uL (1.0-4.8); LYMPHOCYTES % (AUTO) 5.4 % (22.0-44.0); MEAN CORPUSCULAR HEMOGLOBIN 32.3 pg (26.0-34.0); MEAN CORPUSCULAR HGB CONC 34.2 G/dL (31.0-37.0); MEAN CORPUSCULAR VOLUME 94 fL (80-100); MONOCYTES # (AUTO) 0.7 K/uL (0.1-1.0); MONOCYTES % (AUTO) 7.1 % (2.0-9.0); NEUTROPHILS # (AUTO) 8.4 K/uL (1.8-7.7); PLATELET COUNT (AUTO) 195 K/uL (150-450); RED BLOOD CELL COUNT(AUTO) 2.34 MIL/uL (4.50-5.90); RED CELL DISTRIBUTION WIDTH 18.8 % (11.5-14.5)
[2020-11-06] MEDS ORDERED: PHENYLEPHRINE HCL 800 MG in DEXTROSE 5%-WATER 170 ML IV PRN ×4 (06:45)
[2020-11-06] MEDS ORDERED: VANCOMYCIN HCL 1 GM/VIAL ONE (06:51)
[2020-11-06 06:56] LABS: ALBUMIN 2.9 g/dL (3.4-5.0); BILIRUBIN,TOTAL 1.2 mg/dL (0.1-1.0); CALCIUM, TOTAL 8.6 mg/dL (8.8-10.5); CREATININE 5.44 mg/dL (0.60-1.30); MAGNESIUM 2.4 mg/dL (1.80-2.40); PHOSPHORUS 5.7 mg/dL (2.5-4.9)
[2020-11-06 06:58] LABS: POTASSIUM 6.2 mmol/L (3.5-5.1)
[2020-11-06] MEDS ORDERED: CALCIUM CHLORIDE 100 MG/ML 10 ML SYRINGE IVP ONE (07:02)
[2020-11-06] MEDS ORDERED: INSULIN REGULAR, HUMAN 100 UNITS/ML ONE (07:04)
[2020-11-06 07:07] LABS: NEUTROPHILS % (AUTO) 87.1 % (40.0-70.0)
[2020-11-06] MEDS ORDERED: CALCIUM GLUCONATE 100 MG/ML 10 ML IVP ONE (07:15)
[2020-11-06 07:30] LABS: % IRON SATURATION 117.3 % (30-44)
[2020-11-06] MEDS ORDERED: TRANEXAMIC ACID 1,000 MG in DEXTROSE 5%-WATER 50 ML IV ONE (07:30)
[2020-11-06] MEDS ORDERED: SUGAMMADEX SODIUM 200 MG/2 ML VIAL IVP ONE (07:57)
[2020-11-06 08:04] LABS: GLUCOMETER DEV NAME(LOC) SDS.; GLUCOSE,POINT OF CARE 204 MG/DL (70-110)
[2020-11-06] MEDS: CARVEDILOL 3.125 MG TABLET PO SCH ×2 (09:00→22:13)
[2020-11-06] MEDS ORDERED: MEPERIDINE-PF 25 MG/ML VIAL IVP PRN (09:15)
[2020-11-06] MEDS ORDERED: FentaNYL CITRATE PF 100 MCG/2 ML VIAL IVP PRN (09:15)
[2020-11-06] MEDS ORDERED: HYDROmorphone 2 MG/ML VIAL IVP PRN (09:15)
[2020-11-06 09:16] LABS: BASOPHILS % (AUTO) 0.1 % (0.0-2.0); EOSINOPHILS % (AUTO) 0.1 % (1.0-6.0); HEMATOCRIT 24.7 % (41-53); HEMOGLOBIN 8.4 g/dL (13.5-17.5); LYMPHOCYTES # (AUTO) 0.6 K/uL (1.0-4.8); LYMPHOCYTES % (AUTO) 5.7 % (22.0-44.0); MEAN CORPUSCULAR HEMOGLOBIN 29.8 pg (26.0-34.0); MEAN CORPUSCULAR HGB CONC 33.8 G/dL (31.0-37.0); MEAN CORPUSCULAR VOLUME 88 fL (80-100); MONOCYTES # (AUTO) 0.4 K/uL (0.1-1.0); MONOCYTES % (AUTO) 4.3 % (2.0-9.0); NEUTROPHILS # (AUTO) 8.6 K/uL (1.8-7.7); PLATELET COUNT (AUTO) 155 K/uL (150-450); RED CELL DISTRIBUTION WIDTH 19.7 % (11.5-14.5)
[2020-11-06 09:17] LABS: NEUTROPHILS % (AUTO) 89.8 % (40.0-70.0)
[2020-11-06 09:30] LABS: INR 1.4 (0.9-1.1); PROTHROMBIN TIME 14.8 SEC (9.4-11.6)
[2020-11-06 09:58] LABS: ABG A-A DIFF O2 85.7 mmHg (10-20.0); ABG BASE EXCESS -1.6 mmol/L (-2.0-3.0); ABG CARBOXYHEMOGLOBIN 1.4 % (0.0-1.5); ABG HCO3 23.3 mmol/L (22.0-26.0); ABG METHEMOGLOBIN 0.3 % (0.0-1.5); ABG OXYGEN CONTENT 12.4 mL/dL (15.0-23.0); ABG OXYHEMOGLOBIN 93.4 % (94.0-100.0); ABG PCO2 36 mmHg (35-45); ABG PH 7.421 (7.35-7.450); ABG TOTAL HEMOGLOBIN 9.4 G/dL (12.0-18.0); SOURCE, BLOOD GAS ARTERIAL; TEMPERATURE, FAHRENHEIT, BG 97.6 FAHREN (96.0-98.6)
[2020-11-06 09:59] LABS: O2 DEVICE,BLOOD GAS CANNULA (ROOM AIR); SITE, BLOOD GAS ARTERIAL LINE
[2020-11-06 10:13] LABS: CALCIUM, TOTAL 8.6 mg/dL (8.8-10.5); CREATININE 5.33 mg/dL (0.60-1.30); POTASSIUM 5.7 mmol/L (3.5-5.1)
[2020-11-06 10:19] LABS: ALBUMIN 2.6 g/dL (3.4-5.0); BILIRUBIN,TOTAL 0.7 mg/dL (0.1-1.0); TOTAL PROTEIN, SERUM 7.2 g/dL (6.4-8.2)
[2020-11-06] MEDS ORDERED: MORPHINE SULFATE 4 MG/ML SYRINGE IVP ONE (12:00)
[2020-11-06] MEDS ORDERED: MORPHINE SULFATE/PF 0.5 MG/ML 10 ML AMP IVP ONE (12:00)
[2020-11-06] MEDS ORDERED: DEXAMETHASONE SOD PHOS 4 MG/ML VIAL IVP ONE (12:00)
[2020-11-06] MEDS ORDERED: ROCURONIUM BROMIDE 10 MG/ML 5 ML VIAL IVP ONE (12:00)
[2020-11-06] MEDS ORDERED: 0.9% SODIUM CHLORIDE 10 ML VIAL IVP ONE (12:00)
[2020-11-06] MEDS ORDERED: ONDANSETRON HCL 4 MG/2 ML VIAL IVP ONE (12:00)
[2020-11-06] MEDS ORDERED: MIDAZOLAM HCL 2 MG/2 ML VIAL IVP ONE (12:00)
[2020-11-06] MEDS ORDERED: FentaNYL CITRATE PF 100 MCG/2 ML VIAL IVP ONE (12:00)
[2020-11-06] MEDS ORDERED: LIDOCAINE/PF 2% 5 ML VIAL IM ONE (12:00)
[2020-11-06] MEDS: DOCUSATE SODIUM 100 MG CAPSULE PO SCH ×2 (18:03→21:00)
[2020-11-06] MEDS: VITAMIN B COMP/VIT C/FOLIC ACID CAPSULE PO SCH (18:03)
[2020-11-06] MEDS: EPOETIN ALFA 10,000 UNITS/ML VIAL SQ SCH (18:04)
[2020-11-06] MEDS: FAMOTIDINE 20 MG TABLET PO SCH (18:04)
[2020-11-06] MEDS ORDERED: SODIUM CHLORIDE 0.9% 250 ML IV ONE (18:08)
[2020-11-06] MEDS: CeFAZolin 2 GM/DEXTROSE 50 ML IV SCH (18:15)
[2020-11-06] MEDS: HEPARIN SODIUM,PORCINE 5,000 UNITS/ML VIAL SQ SCH (22:13)
[2020-11-06] MEDS: HYDROCODONE/ACETAMINOPHEN 5-325 MG TABLET PO PRN (22:13)
[2020-11-06] MEDS: ATORVASTATIN CALCIUM 40 MG TABLET PO SCH (22:13)
[2020-11-06] MEDS: OXYGEN THERAPY IH SCH (22:26)
[2020-11-07] VITALS (7 sets, daily range): BP systolic 150–171; BP diastolic 48–84
[2020-11-07] MEDS: CeFAZolin 2 GM/DEXTROSE 50 ML IV SCH (00:35)
[2020-11-07 08:02] LABS: CALCIUM, TOTAL 6.3 mg/dL (8.8-10.5); CREATININE 4.27 mg/dL (0.60-1.30); PHOSPHORUS 4.7 mg/dL (2.5-4.9); POTASSIUM 4.3 mmol/L (3.5-5.1)
[2020-11-07] MEDS: FAMOTIDINE 20 MG TABLET PO SCH (08:30)
[2020-11-07] MEDS: CARVEDILOL 3.125 MG TABLET PO SCH ×2 (08:30→20:46)
[2020-11-07] MEDS: HEPARIN SODIUM,PORCINE 5,000 UNITS/ML VIAL SQ SCH ×2 (08:30→20:46)
[2020-11-07] MEDS: DOCUSATE SODIUM 100 MG CAPSULE PO SCH ×2 (08:30→20:46)
[2020-11-07] MEDS: VITAMIN B COMP/VIT C/FOLIC ACID CAPSULE PO SCH (08:30)
[2020-11-07] MEDS: MORPHINE SULFATE 2 MG/ML SYRINGE IVP PRN (08:33)
[2020-11-07] MEDS: OXYGEN THERAPY IH SCH ×2 (13:00→20:17)
[2020-11-07] MEDS: HYDROCODONE/ACETAMINOPHEN 5-325 MG TABLET PO PRN ×2 (13:01→22:33)
[2020-11-07] MEDS: INSULIN LISPRO 100 UNITS/ML SQ PRN ×2 (13:34→20:57)
[2020-11-07] MEDS: ATORVASTATIN CALCIUM 40 MG TABLET PO SCH (20:46)
[2020-11-07 20:48] LABS: GLUCOMETER DEV NAME(LOC) 5S.1; GLUCOSE,POINT OF CARE 138 MG/DL (70-110)
[2020-11-07 20:48] LABS: GLUCOMETER DEV NAME(LOC) 5S.1; GLUCOSE,POINT OF CARE 234 MG/DL (70-110)
[2020-11-07 20:48] LABS: GLUCOMETER DEV NAME(LOC) 5S.1; GLUCOSE,POINT OF CARE 144 MG/DL (70-110)
[2020-11-07 20:49] LABS: GLUCOMETER DEV NAME(LOC) 5S.1; GLUCOSE,POINT OF CARE 171 MG/DL (70-110)
[2020-11-08 05:29] VITALS: BP 178/72
[2020-11-08] MEDS: INSULIN LISPRO 100 UNITS/ML SQ PRN ×3 (05:47→20:29)
[2020-11-08] MEDS: MORPHINE SULFATE 2 MG/ML SYRINGE IVP PRN (05:58)
[2020-11-08 06:21] VITALS: BP 160/62
[2020-11-08 07:15] VITALS: BP 180/74
[2020-11-08] MEDS: DOCUSATE SODIUM 100 MG CAPSULE PO SCH ×2 (08:20→19:56)
[2020-11-08] MEDS: VITAMIN B COMP/VIT C/FOLIC ACID CAPSULE PO SCH (08:20)
[2020-11-08] MEDS: HEPARIN SODIUM,PORCINE 5,000 UNITS/ML VIAL SQ SCH ×2 (08:20→19:56)
[2020-11-08] MEDS: FAMOTIDINE 20 MG TABLET PO SCH (08:20)
[2020-11-08] MEDS: OXYGEN THERAPY IH SCH ×2 (08:21→20:26)
[2020-11-08] MEDS: CARVEDILOL 3.125 MG TABLET PO SCH ×2 (08:21→19:55)
[2020-11-08] MEDS ORDERED: AmLODIPine BESYLATE 5 MG TABLET PO SCH (09:00)
[2020-11-08] MEDS ORDERED: SODIUM CHLORIDE 0.9% 2,000 ML ONE (09:59)
[2020-11-08] MEDS: HYDROCODONE/ACETAMINOPHEN 5-325 MG TABLET PO PRN ×2 (11:25→18:12)
[2020-11-08 11:35] VITALS: BP 173/48
[2020-11-08] MEDS: EPOETIN ALFA 10,000 UNITS/ML VIAL SQ SCH (15:21)
[2020-11-08 15:40] VITALS: BP 154/69
[2020-11-08] MEDS ORDERED: CloNIDine HCL 0.1 MG TABLET PO PRN (16:15)
[2020-11-08] MEDS ORDERED: AmLODIPine BESYLATE 5 MG TABLET PO ONE (16:15)
[2020-11-08] MEDS: ATORVASTATIN CALCIUM 40 MG TABLET PO SCH (19:56)
[2020-11-08 20:03] VITALS: BP 158/73
[2020-11-09 00:26] VITALS: BP 140/70
[2020-11-09] MEDS: HYDROCODONE/ACETAMINOPHEN 5-325 MG TABLET PO PRN (03:48)
[2020-11-09 03:59] VITALS: BP 154/70
[2020-11-09 07:30] VITALS: BP 157/74
[2020-11-09 08:12] LABS: HEMOGLOBIN 7.2 g/dL (13.5-17.5)
[2020-11-09] MEDS: OXYGEN THERAPY IH SCH ×2 (08:21→20:13)
[2020-11-09] MEDS: DOCUSATE SODIUM 100 MG CAPSULE PO SCH ×2 (08:22→20:14)
[2020-11-09] MEDS: VITAMIN B COMP/VIT C/FOLIC ACID CAPSULE PO SCH (08:22)
[2020-11-09] MEDS: FAMOTIDINE 20 MG TABLET PO SCH (08:22)
[2020-11-09] MEDS: HEPARIN SODIUM,PORCINE 5,000 UNITS/ML VIAL SQ SCH ×2 (08:22→20:14)
[2020-11-09] MEDS: CARVEDILOL 3.125 MG TABLET PO SCH ×2 (08:23→20:14)
[2020-11-09] MEDS: AmLODIPine BESYLATE 10 MG TABLET PO SCH (08:23)
[2020-11-09 08:24] LABS: ALBUMIN 2.5 g/dL (3.4-5.0); BILIRUBIN,TOTAL 0.7 mg/dL (0.1-1.0); CALCIUM, TOTAL 8.4 mg/dL (8.8-10.5); CREATININE 3.86 mg/dL (0.60-1.30); MAGNESIUM 2.2 mg/dL (1.80-2.40); POTASSIUM 4.2 mmol/L (3.5-5.1)
[2020-11-09 08:38] LABS: BASOPHILS % (AUTO) 0.4 % (0.0-2.0); HEMATOCRIT 21.2 % (41-53); LYMPHOCYTES # (AUTO) 0.9 K/uL (1.0-4.8); MEAN CORPUSCULAR HEMOGLOBIN 30.7 pg (26.0-34.0); MEAN CORPUSCULAR HGB CONC 33.8 G/dL (31.0-37.0); MEAN CORPUSCULAR VOLUME 91 fL (80-100); MONOCYTES # (AUTO) 0.6 K/uL (0.1-1.0); MONOCYTES % (AUTO) 6.9 % (2.0-9.0); NEUTROPHILS # (AUTO) 7.2 K/uL (1.8-7.7); NEUTROPHILS % (AUTO) 81.7 % (40.0-70.0); PLATELET COUNT (AUTO) 232 K/uL (150-450); RED BLOOD CELL COUNT(AUTO) 2.33 MIL/uL (4.50-5.90)
[2020-11-09] MEDS: ASPIRIN 81 MG DR TABLET PO SCH (09:15)
[2020-11-09] MEDS: ACETAMINOPHEN 325 MG TABLET PO PRN (12:47)
[2020-11-09 20:07] VITALS: BP 150/59
[2020-11-09] MEDS: ATORVASTATIN CALCIUM 40 MG TABLET PO SCH (20:14)
[2020-11-09] MEDS: INSULIN LISPRO 100 UNITS/ML SQ PRN (21:53)
[2020-11-10] VITALS (13 sets, daily range): BP systolic 120–167; BP diastolic 43–74
[2020-11-10] MEDS: INSULIN LISPRO 100 UNITS/ML SQ PRN ×3 (06:35→17:51)
[2020-11-10 07:18] LABS: ALBUMIN 2.4 g/dL (3.4-5.0); BILIRUBIN,TOTAL 0.6 mg/dL (0.1-1.0); CALCIUM, TOTAL 8.5 mg/dL (8.8-10.5); CREATININE 5.23 mg/dL (0.60-1.30); MAGNESIUM 2.3 mg/dL (1.80-2.40); POTASSIUM 4.2 mmol/L (3.5-5.1); TOTAL PROTEIN, SERUM 6.9 g/dL (6.4-8.2)
[2020-11-10 07:21] LABS: BASOPHILS % (AUTO) 0.6 % (0.0-2.0); LYMPHOCYTES # (AUTO) 0.6 K/uL (1.0-4.8); LYMPHOCYTES % (AUTO) 8.1 % (22.0-44.0); MEAN CORPUSCULAR HEMOGLOBIN 29.9 pg (26.0-34.0); MEAN CORPUSCULAR HGB CONC 33.1 G/dL (31.0-37.0); MEAN CORPUSCULAR VOLUME 90 fL (80-100); MONOCYTES # (AUTO) 0.5 K/uL (0.1-1.0); MONOCYTES % (AUTO) 6.9 % (2.0-9.0); NEUTROPHILS # (AUTO) 6.2 K/uL (1.8-7.7); NEUTROPHILS % (AUTO) 80.4 % (40.0-70.0); PLATELET COUNT (AUTO) 222 K/uL (150-450); RED BLOOD CELL COUNT(AUTO) 2.26 MIL/uL (4.50-5.90); RED CELL DISTRIBUTION WIDTH 18.9 % (11.5-14.5)
[2020-11-10 07:28] LABS: HEMOGLOBIN 6.8 g/dL (13.5-17.5)
[2020-11-10 07:29] LABS: HEMATOCRIT 20.4 % (41-53)
[2020-11-10] MEDS: OXYGEN THERAPY IH SCH ×2 (07:55→20:04)
[2020-11-10] MEDS: VITAMIN B COMP/VIT C/FOLIC ACID CAPSULE PO SCH (07:56)
[2020-11-10] MEDS: FAMOTIDINE 20 MG TABLET PO SCH (07:56)
[2020-11-10] MEDS: AmLODIPine BESYLATE 10 MG TABLET PO SCH (07:56)
[2020-11-10] MEDS: DOCUSATE SODIUM 100 MG CAPSULE PO SCH ×2 (07:56→20:00)
[2020-11-10] MEDS: CARVEDILOL 3.125 MG TABLET PO SCH ×2 (07:56→19:59)
[2020-11-10] MEDS: EPOETIN ALFA 10,000 UNITS/ML VIAL SQ SCH (07:58)
[2020-11-10] MEDS: HEPARIN SODIUM,PORCINE 5,000 UNITS/ML VIAL SQ SCH ×2 (08:04→20:00)
[2020-11-10] MEDS: ASPIRIN 81 MG DR TABLET PO SCH (08:05)
[2020-11-10] MEDS: ACETAMINOPHEN 325 MG TABLET PO PRN ×3 (08:49→21:51)
[2020-11-10] MEDS ORDERED: SODIUM CHLORIDE 0.9% 500 ML IV ONE (10:34)
[2020-11-10] MEDS: FERROUS SULFATE 325 MG EC TABLET PO SCH ×2 (12:00→18:27)
[2020-11-10 12:36] LABS: COVID AG,FIA SOURCE NASOPHARYNGEAL
[2020-11-10] MEDS: ATORVASTATIN CALCIUM 40 MG TABLET PO SCH (20:00)
[2020-11-11 00:19] VITALS: BP 164/73
[2020-11-11 05:49] VITALS: BP 161/79
[2020-11-11 06:20] LABS: BASOPHILS % (AUTO) 0.7 % (0.0-2.0); EOSINOPHILS % (AUTO) 4.8 % (1.0-6.0); HEMATOCRIT 24.3 % (41-53); LYMPHOCYTES # (AUTO) 0.7 K/uL (1.0-4.8); LYMPHOCYTES % (AUTO) 8.6 % (22.0-44.0); MEAN CORPUSCULAR HEMOGLOBIN 29.9 pg (26.0-34.0); MEAN CORPUSCULAR HGB CONC 33.1 G/dL (31.0-37.0); MEAN CORPUSCULAR VOLUME 90 fL (80-100); MONOCYTES # (AUTO) 0.6 K/uL (0.1-1.0); MONOCYTES % (AUTO) 8.3 % (2.0-9.0); NEUTROPHILS # (AUTO) 5.9 K/uL (1.8-7.7); NEUTROPHILS % (AUTO) 77.6 % (40.0-70.0); PLATELET COUNT (AUTO) 224 K/uL (150-450); RED BLOOD CELL COUNT(AUTO) 2.69 MIL/uL (4.50-5.90); RED CELL DISTRIBUTION WIDTH 17.9 % (11.5-14.5)
[2020-11-11] MEDS: OXYGEN THERAPY IH SCH (07:37)
[2020-11-11 08:00] VITALS: BP 172/76
[2020-11-11] MEDS: ASPIRIN 81 MG DR TABLET PO SCH (08:15)
[2020-11-11] MEDS: FERROUS SULFATE 325 MG EC TABLET PO SCH (08:15)
[2020-11-11] MEDS: DOCUSATE SODIUM 100 MG CAPSULE PO SCH (08:15)
[2020-11-11] MEDS: FAMOTIDINE 20 MG TABLET PO SCH (08:16)
[2020-11-11] MEDS: HEPARIN SODIUM,PORCINE 5,000 UNITS/ML VIAL SQ SCH (08:16)
[2020-11-11] MEDS: EPOETIN ALFA 10,000 UNITS/ML VIAL SQ SCH (08:16)
[2020-11-11] MEDS: VITAMIN B COMP/VIT C/FOLIC ACID CAPSULE PO SCH (08:16)
[2020-11-11] MEDS: CARVEDILOL 3.125 MG TABLET PO SCH (09:00)
[2020-11-11] MEDS: AmLODIPine BESYLATE 10 MG TABLET PO SCH (09:00)
[2020-11-11] MEDS: ACETAMINOPHEN 325 MG TABLET PO PRN ×2 (09:03→19:15)
[2020-11-11 11:15] VITALS: BP 129/80
[2020-11-11] MEDS: INSULIN LISPRO 100 UNITS/ML SQ PRN (11:58)
[2020-11-11] MEDS ORDERED: SODIUM CHLORIDE 0.9% 2,000 ML ONE (12:30)
[2020-11-11 20:24] VITALS: BP 105/66
[2020-11-13 20:51] LABS: GLUCOMETER DEV NAME(LOC) 5S.1; GLUCOSE,POINT OF CARE 133 MG/DL (70-110)
[2020-11-13 20:51] LABS: GLUCOMETER DEV NAME(LOC) 5S.1; GLUCOSE,POINT OF CARE 164 MG/DL (70-110)
[2020-11-13 20:52] LABS: GLUCOMETER DEV NAME(LOC) 5S.1; GLUCOSE,POINT OF CARE 123 MG/DL (70-110)
[2020-11-13 20:52] LABS: GLUCOMETER DEV NAME(LOC) 5S.1; GLUCOSE,POINT OF CARE 95 MG/DL (70-110)
[2020-11-13 20:52] LABS: GLUCOMETER DEV NAME(LOC) 5S.1; GLUCOSE,POINT OF CARE 181 MG/DL (70-110)
[2020-11-13 20:52] LABS: GLUCOMETER DEV NAME(LOC) 5S.1; GLUCOSE,POINT OF CARE 177 MG/DL (70-110)
[2020-11-13 20:52] LABS: GLUCOMETER DEV NAME(LOC) 5S.1; GLUCOSE,POINT OF CARE 177 MG/DL (70-110)
[2020-11-13 20:52] LABS: GLUCOMETER DEV NAME(LOC) 5S.1; GLUCOSE,POINT OF CARE 117 MG/DL (70-110)
[2020-11-13 20:53] LABS: GLUCOMETER DEV NAME(LOC) 5S.1; GLUCOSE,POINT OF CARE 137 MG/DL (70-110)
[2020-11-13 20:53] LABS: GLUCOMETER DEV NAME(LOC) 5S.1; GLUCOSE,POINT OF CARE 134 MG/DL (70-110)
== END 2020-11-11 20:10 | DRG 480 ==
LOC: EMS 13:10 → 5S 16:36
PROVIDERS: ADMIT Internal Medicine; ATTEND Internal Medicine
PROC: 30233N1 Transfusion of Nonautologous Red Blood Cells into Peripheral Vein, Percutaneous Approach (ICD-10-PCS; 2020-11-05)
PROC: 0QU90JZ Supplement Left Femoral Shaft with Synthetic Substitute, Open Approach (ICD-10-PCS; 2020-11-06)
PROC: 0QP904Z Removal of Internal Fixation Device from Left Femoral Shaft, Open Approach (ICD-10-PCS; 2020-11-06)
PROC: 5A1D70Z Performance of Urinary Filtration, Intermittent, Less than 6 Hours Per Day (ICD-10-PCS; 2020-11-06)
PROC: 0QS904Z Reposition Left Femoral Shaft with Internal Fixation Device, Open Approach (ICD-10-PCS; principal; 2020-11-06 06:45)
PROC: 5A1D70Z Performance of Urinary Filtration, Intermittent, Less than 6 Hours Per Day (ICD-10-PCS; 2020-11-08)
PROC: 5A1D70Z Performance of Urinary Filtration, Intermittent, Less than 6 Hours Per Day (ICD-10-PCS; 2020-11-11)
DX: M84.452A Pathological fracture, left femur, initial encounter for fracture (principal); N18.6 End stage renal disease; M97.02XA Periprosthetic fracture around internal prosthetic left hip joint, initial encounter; I12.0 Hypertensive chronic kidney disease with stage 5 chronic kidney disease or end stage renal disease; E87.1 Hypo-osmolality and hyponatremia; E11.52 Type 2 diabetes mellitus with diabetic peripheral angiopathy with gangrene; I96 Gangrene, not elsewhere classified; Z79.4 Long term (current) use of insulin; E11.22 Type 2 diabetes mellitus with diabetic chronic kidney disease; Z99.2 Dependence on renal dialysis; Z79.82 Long term (current) use of aspirin; D63.8 Anemia in other chronic diseases classified elsewhere; I25.10 Atherosclerotic heart disease of native coronary artery without angina pectoris; E78.5 Hyperlipidemia, unspecified; I35.0 Nonrheumatic aortic (valve) stenosis; D63.1 Anemia in chronic kidney disease; E11.40 Type 2 diabetes mellitus with diabetic neuropathy, unspecified; I25.2 Old myocardial infarction; Z20.822 Contact with and (suspected) exposure to COVID-19; E78.00 Pure hypercholesterolemia, unspecified; R23.0 Cyanosis; E87.5 Hyperkalemia; W18.39XA Other fall on same level, initial encounter; Y93.89 Activity, other specified; Y92.89 Other specified places as the place of occurrence of the external cause; Y99.8 Other external cause status
CPT/HCPCS: 73503; 73552; 73700; 82805; 83540; 83550; 83735; 84100; 86850; 86900; 86901; 86923; 87081; 87340; 87426; 88300; 93005; 93931; 93990; 97162; 97167; 97530; 97535; 99291; A9575; C9290; G0238; J0610; J0690; J0885; J1100; J1170; J1644; J1815; J2250; J2270; J2274; J2370; J2405; J3010; J3370; J3490; J7030; J7040; J7050; J7060; P9016; 36415-L1; 36415-TC; 71045-TC

== ENCOUNTER 2020-11-26 11:48 | Inpatient (IN) | payer MEDICARE, MEDICAID ==
[~2020-11-26] VITALS: Ht 175.3 cm; Wt 64.3 kg
[~2020-11-26 11:48] MED LIST changes: +ACET-2247 PO; -ACET-2865 PO; +ASPI-1450 PO; -ASPI-728 PO
[2020-11-26 12:18] LABS: ABG A-A DIFF O2 610.5 mmHg (10-20.0); ABG BASE EXCESS 6.1 mmol/L (-2.0-3.0); ABG HCO3 29.5 mmol/L (22.0-26.0); ABG METHEMOGLOBIN 0.3 % (0.0-1.5); ABG OXYGEN CONTENT 9.5 mL/dL (15.0-23.0); ABG OXYGEN SATURATION 92.2 % (95.0-98.0); ABG OXYHEMOGLOBIN 90.1 % (94.0-100.0); ABG PCO2 40 mmHg (35-45); ABG TOTAL HEMOGLOBIN 7.4 G/dL (12.0-18.0); O2 DEVICE,BLOOD GAS NON REBREATHER (ROOM AIR); PO2, ARTERIAL BG 62.5 mmHg (79.0-87.0); SITE, BLOOD GAS RT RADIAL; SOURCE, BLOOD GAS ARTERIAL; TEMPERATURE, FAHRENHEIT, BG 98.9 FAHREN (96.0-98.6)
[2020-11-26 12:29] LABS: GLUCOSE,POINT OF CARE 134 MG/DL (70-110)
[2020-11-26 12:34] LABS: BASOPHILS % (AUTO) 1.2 % (0.0-2.0); EOSINOPHILS % (AUTO) 1.3 % (1.0-6.0); HEMATOCRIT 22.6 % (41-53); HEMOGLOBIN 7.4 g/dL (13.5-17.5); LYMPHOCYTES # (AUTO) 0.8 K/uL (1.0-4.8); LYMPHOCYTES % (AUTO) 12.6 % (22.0-44.0); MEAN CORPUSCULAR HEMOGLOBIN 30.4 pg (26.0-34.0); MEAN CORPUSCULAR HGB CONC 32.8 G/dL (31.0-37.0); MEAN CORPUSCULAR VOLUME 93 fL (80-100); MONOCYTES # (AUTO) 0.5 K/uL (0.1-1.0); MONOCYTES % (AUTO) 8.3 % (2.0-9.0); NEUTROPHILS # (AUTO) 4.9 K/uL (1.8-7.7); NEUTROPHILS % (AUTO) 76.6 % (40.0-70.0); PLATELET COUNT (AUTO) 317 K/uL (150-450); RED BLOOD CELL COUNT(AUTO) 2.44 MIL/uL (4.50-5.90); RED CELL DISTRIBUTION WIDTH 20.8 % (11.5-14.5)
[2020-11-26 12:36] LABS: COVID AG,FIA SOURCE NASOPHARYNGEAL
[2020-11-26 12:36] LABS: CALCIUM, TOTAL 9.2 mg/dL (8.8-10.5); CREATININE 3.83 mg/dL (0.60-1.30); POTASSIUM 4.3 mmol/L (3.5-5.1)
[2020-11-26 12:44] LABS: ALBUMIN 2.8 g/dL (3.4-5.0); BILIRUBIN,TOTAL 0.9 mg/dL (0.1-1.0)
[2020-11-26] MEDS ORDERED: PIPERACILLIN/TAZO 3.375 GM/D5W 50 ML IV ONE (12:45)
[2020-11-26] MEDS ORDERED: VANCOMYCIN HCL 1.25 GM in DEXTROSE 5%-WATER 250 ML IV ONE (13:00)
[2020-11-26] MEDS ORDERED: DEXAMETHASONE SOD PHOS 4 MG/ML VIAL IVP ONE (13:15)
[2020-11-26 13:43] LABS: BASOPHILS % (AUTO) 1.1 % (0.0-2.0); EOSINOPHILS % (AUTO) 1.2 % (1.0-6.0); HEMATOCRIT 21.4 % (41-53); LYMPHOCYTES # (AUTO) 0.8 K/uL (1.0-4.8); LYMPHOCYTES % (AUTO) 8.2 % (22.0-44.0); MEAN CORPUSCULAR HGB CONC 32.6 G/dL (31.0-37.0); MEAN CORPUSCULAR VOLUME 92 fL (80-100); MONOCYTES # (AUTO) 0.6 K/uL (0.1-1.0); MONOCYTES % (AUTO) 6.4 % (2.0-9.0); NEUTROPHILS # (AUTO) 7.7 K/uL (1.8-7.7); NEUTROPHILS % (AUTO) 83.1 % (40.0-70.0); PLATELET COUNT (AUTO) 303 K/uL (150-450); RED BLOOD CELL COUNT(AUTO) 2.32 MIL/uL (4.50-5.90); RED CELL DISTRIBUTION WIDTH 20.6 % (11.5-14.5)
[2020-11-26] MEDS ORDERED: IOVERSOL 350 MG/ML 100 ML VIAL ONE (14:01)
[2020-11-26] MEDS ORDERED: SODIUM CHLORIDE 0.9% 100 ML ONE (14:02)
[2020-11-26 14:36] LABS: ALBUMIN 2.8 g/dL (3.4-5.0); BILIRUBIN,TOTAL 0.9 mg/dL (0.1-1.0); C-REACTIVE PROTEIN QUANT 10.98 mg/dL (0.00-0.30); CREATININE 4.11 mg/dL (0.60-1.30); POTASSIUM 4.6 mmol/L (3.5-5.1); TOTAL PROTEIN, SERUM 8.7 g/dL (6.4-8.2)
[2020-11-26] MEDS ORDERED: ONDANSETRON HCL 4 MG/2 ML VIAL IVP PRN (15:45)
[2020-11-26] MEDS ORDERED: ZOLPIDEM TARTRATE 5 MG TABLET PO PRN (15:45)
[2020-11-26] MEDS ORDERED: HYDROCODONE/ACETAMINOPHEN 5-325 MG TABLET PO PRN (15:45)
[2020-11-26] MEDS ORDERED: MORPHINE SULFATE 2 MG/ML SYRINGE IVP PRN (15:45)
[2020-11-26] MEDS ORDERED: MAGNESIUM HYDROXIDE SUSPENSION 30 ML UDCUP PO PRN (15:45)
[2020-11-26] MEDS ORDERED: ALBUTEROL SULFATE 2.5 MG/0.5 ML NEB SOLUTION NEB PRN (15:45)
[2020-11-26] MEDS ORDERED: BISACODYL 10 MG RECTAL RECTAL SUPPOSITORY PR PRN (15:45)
[2020-11-26] MEDS ORDERED: IPRATROPIUM BROMIDE 0.5 MG/2.5 ML NEB SOLUTION NEB PRN (15:45)
[2020-11-26] MEDS: ACETAMINOPHEN 325 MG TABLET PO PRN ×2 (16:01→22:36)
[2020-11-26] MEDS: CALCIUM ACETATE 667 MG CAPSULE PO SCH (18:00)
[2020-11-26] MEDS: VITAMIN B COMP/VIT C/FOLIC ACID CAPSULE PO SCH (18:01)
[2020-11-26 19:15] VITALS: BP_SYST 103; BP_SYST 171; BP_DIAS 61; BP_DIAS 71
[2020-11-26 19:30] VITALS: BP 178/58
[2020-11-26 19:45] VITALS: BP 183/59
[2020-11-26 20:00] VITALS: BP 163/74
[2020-11-26] MEDS ORDERED: INFLUENZA VIRUS VACCINE QVS 2020-21 (6MO+)/PF 60 MCG/0.5 ML SYRINGE IM ONE (20:30)
[2020-11-26] MEDS ORDERED: DEXTROSE 50%-WATER 25 GM/50 ML SYRINGE IVP PRN (21:45)
[2020-11-26] MEDS: INSULIN LISPRO 100 UNITS/ML SQ PRN (21:52)
[2020-11-26 22:01] LABS: GLUCOMETER DEV NAME(LOC) AHU.; GLUCOSE,POINT OF CARE 151 MG/DL (70-110)
[2020-11-26] MEDS: CARVEDILOL 12.5 MG TABLET PO SCH (22:31)
[2020-11-26 22:52] LABS: BASOPHILS % (AUTO) 0.6 % (0.0-2.0); EOSINOPHILS % (AUTO) 0 % (1.0-6.0); HEMATOCRIT 24.6 % (41-53); HEMOGLOBIN 8.1 g/dL (13.5-17.5); LYMPHOCYTES # (AUTO) 0.2 K/uL (1.0-4.8); LYMPHOCYTES % (AUTO) 3.6 % (22.0-44.0); MEAN CORPUSCULAR HEMOGLOBIN 29.6 pg (26.0-34.0); MEAN CORPUSCULAR VOLUME 90 fL (80-100); MONOCYTES # (AUTO) 0.1 K/uL (0.1-1.0); NEUTROPHILS # (AUTO) 6.1 K/uL (1.8-7.7); NEUTROPHILS % (AUTO) 93.8 % (40.0-70.0); PLATELET COUNT (AUTO) 304 K/uL (150-450); RED BLOOD CELL COUNT(AUTO) 2.75 MIL/uL (4.50-5.90); RED CELL DISTRIBUTION WIDTH 20.1 % (11.5-14.5)
[2020-11-26 23:12] LABS: PLATELET MORPHOLOGY COMMENT LARGE PLTS PRESENT
[2020-11-27] VITALS (14 sets, daily range): BP systolic 119–175; BP diastolic 24–89
[2020-11-27] MEDS ORDERED: DiphenhydrAMINE HCL 25 MG CAPSULE PO ONE (01:30)
[2020-11-27 05:47] LABS: GLUCOMETER DEV NAME(LOC) AHU.; GLUCOSE,POINT OF CARE 151 MG/DL (70-110)
[2020-11-27 06:12] LABS: BASOPHILS % (AUTO) 0.9 % (0.0-2.0); EOSINOPHILS % (AUTO) 0 % (1.0-6.0); HEMATOCRIT 22.9 % (41-53); HEMOGLOBIN 7.7 g/dL (13.5-17.5); LYMPHOCYTES # (AUTO) 0.3 K/uL (1.0-4.8); LYMPHOCYTES % (AUTO) 4.6 % (22.0-44.0); MEAN CORPUSCULAR HEMOGLOBIN 30.4 pg (26.0-34.0); MEAN CORPUSCULAR HGB CONC 33.6 G/dL (31.0-37.0); MEAN CORPUSCULAR VOLUME 91 fL (80-100); MONOCYTES # (AUTO) 0.4 K/uL (0.1-1.0); MONOCYTES % (AUTO) 7.1 % (2.0-9.0); PLATELET COUNT (AUTO) 244 K/uL (150-450); RED BLOOD CELL COUNT(AUTO) 2.53 MIL/uL (4.50-5.90); RED CELL DISTRIBUTION WIDTH 20.5 % (11.5-14.5)
[2020-11-27 06:21] LABS: NEUTROPHILS % (AUTO) 87.4 % (40.0-70.0)
[2020-11-27] MEDS: INSULIN LISPRO 100 UNITS/ML SQ PRN ×2 (06:25→17:21)
[2020-11-27 06:50] LABS: % IRON SATURATION 18.5 % (30-44)
[2020-11-27 07:12] LABS: ALBUMIN 2.6 g/dL (3.4-5.0); BILIRUBIN,TOTAL 0.9 mg/dL (0.1-1.0); C-REACTIVE PROTEIN QUANT 12.41 mg/dL (0.00-0.30); CALCIUM, TOTAL 8.9 mg/dL (8.8-10.5); CREATININE 2.67 mg/dL (0.60-1.30); MAGNESIUM 1.9 mg/dL (1.80-2.40); POTASSIUM 3.3 mmol/L (3.5-5.1)
[2020-11-27] MEDS: DEXAMETHASONE SOD PHOS 4 MG/ML VIAL IVP SCH (08:19)
[2020-11-27] MEDS: CALCIUM ACETATE 667 MG CAPSULE PO SCH ×3 (08:19→17:15)
[2020-11-27] MEDS: CARVEDILOL 12.5 MG TABLET PO SCH ×2 (08:19→21:02)
[2020-11-27] MEDS: ATORVASTATIN CALCIUM 40 MG TABLET PO SCH (08:20)
[2020-11-27] MEDS: VITAMIN B COMP/VIT C/FOLIC ACID CAPSULE PO SCH (08:20)
[2020-11-27] MEDS: AmLODIPine BESYLATE 10 MG TABLET PO SCH (08:20)
[2020-11-27] MEDS: FAMOTIDINE 20 MG TABLET PO SCH (10:10)
[2020-11-27 11:00] LABS: ABG BASE EXCESS 6.9 mmol/L (-2.0-3.0); ABG CARBOXYHEMOGLOBIN 1.8 % (0.0-1.5); ABG HCO3 30.2 mmol/L (22.0-26.0); ABG METHEMOGLOBIN 0.3 % (0.0-1.5); ABG OXYGEN CONTENT 11.1 mL/dL (15.0-23.0); ABG OXYGEN SATURATION 99.2 % (95.0-98.0); ABG OXYHEMOGLOBIN 97.1 % (94.0-100.0); ABG PCO2 40 mmHg (35-45); ABG PH 7.492 (7.35-7.450); PO2, ARTERIAL BG 132.6 mmHg (79.0-87.0); SOURCE, BLOOD GAS ARTERIAL; TEMPERATURE, FAHRENHEIT, BG 98.6 FAHREN (96.0-98.6)
[2020-11-27 11:03] LABS: ABG TOTAL HEMOGLOBIN 7.9 G/dL (12.0-18.0)
[2020-11-27 11:04] LABS: O2 DEVICE,BLOOD GAS CANNULA (ROOM AIR); SITE, BLOOD GAS RT RADIAL
[2020-11-27 11:05] LABS: INR 1.2 (0.9-1.1); PROTHROMBIN TIME 12.8 SEC (9.4-11.6)
[2020-11-27 11:47] LABS: GLUCOMETER DEV NAME(LOC) AHU.; GLUCOSE,POINT OF CARE 149 MG/DL (70-110)
[2020-11-27] MEDS: EPOETIN ALFA 10,000 UNITS/ML VIAL SQ SCH ×2 (12:35→12:37)
[2020-11-27] MEDS: SOD FERRIC GLUC COMPLX/SUCROSE 125 MG in SODIUM CHLORIDE 0.9% 100 ML IV SCH (14:37)
[2020-11-27] MEDS ORDERED: SODIUM CHLORIDE 0.9% 2,000 ML ONE (17:09)
[2020-11-27 17:31] LABS: GLUCOMETER DEV NAME(LOC) AHU.; GLUCOSE,POINT OF CARE 158 MG/DL (70-110)
[2020-11-27] MEDS: ACETAMINOPHEN 325 MG TABLET PO PRN (21:57)
[2020-11-28] VITALS (7 sets, daily range): BP systolic 152–181; BP diastolic 50–82
[2020-11-28] MEDS: HydrALAZINE HCL 20 MG/ML VIAL IVP PRN ×2 (01:17→10:59)
[2020-11-28 06:32] LABS: BASOPHILS % (AUTO) 0.5 % (0.0-2.0); EOSINOPHILS % (AUTO) 0.2 % (1.0-6.0); HEMATOCRIT 24.8 % (41-53); HEMOGLOBIN 8.4 g/dL (13.5-17.5); LYMPHOCYTES # (AUTO) 0.6 K/uL (1.0-4.8); LYMPHOCYTES % (AUTO) 9.2 % (22.0-44.0); MEAN CORPUSCULAR HEMOGLOBIN 30.2 pg (26.0-34.0); MEAN CORPUSCULAR HGB CONC 33.9 G/dL (31.0-37.0); MEAN CORPUSCULAR VOLUME 89 fL (80-100); MONOCYTES # (AUTO) 0.6 K/uL (0.1-1.0); MONOCYTES % (AUTO) 9.9 % (2.0-9.0); NEUTROPHILS # (AUTO) 4.8 K/uL (1.8-7.7); NEUTROPHILS % (AUTO) 80.2 % (40.0-70.0); PLATELET COUNT (AUTO) 257 K/uL (150-450); RED BLOOD CELL COUNT(AUTO) 2.78 MIL/uL (4.50-5.90); RED CELL DISTRIBUTION WIDTH 18.9 % (11.5-14.5)
[2020-11-28 07:59] LABS: ALBUMIN 2.5 g/dL (3.4-5.0); BILIRUBIN,TOTAL 0.9 mg/dL (0.1-1.0); C-REACTIVE PROTEIN QUANT 8.57 mg/dL (0.00-0.30); CALCIUM, TOTAL 9.2 mg/dL (8.8-10.5); CREATININE 2.31 mg/dL (0.60-1.30); MAGNESIUM 1.9 mg/dL (1.80-2.40); PHOSPHORUS 3.3 mg/dL (2.5-4.9); POTASSIUM 3.5 mmol/L (3.5-5.1); TOTAL PROTEIN, SERUM 7.9 g/dL (6.4-8.2)
[2020-11-28] MEDS: CALCIUM ACETATE 667 MG CAPSULE PO SCH ×3 (08:00→17:58)
[2020-11-28 08:23] LABS: GLUCOMETER DEV NAME(LOC) 5S.1; GLUCOSE,POINT OF CARE 96 MG/DL (70-110)
[2020-11-28] MEDS: CARVEDILOL 12.5 MG TABLET PO SCH ×2 (09:02→21:23)
[2020-11-28] MEDS: AmLODIPine BESYLATE 10 MG TABLET PO SCH (09:02)
[2020-11-28] MEDS: DEXAMETHASONE SOD PHOS 4 MG/ML VIAL IVP SCH (09:02)
[2020-11-28] MEDS: VITAMIN B COMP/VIT C/FOLIC ACID CAPSULE PO SCH (10:58)
[2020-11-28] MEDS: ATORVASTATIN CALCIUM 40 MG TABLET PO SCH (10:58)
[2020-11-28] MEDS: FAMOTIDINE 20 MG TABLET PO SCH (10:58)
[2020-11-28 12:33] LABS: GLUCOMETER DEV NAME(LOC) 5N.1B; GLUCOSE,POINT OF CARE 139 MG/DL (70-110)
[2020-11-28 13:43] LABS: SPECIMENTYPE,BODY FLUID PLEURAL
[2020-11-28] MEDS ORDERED: SODIUM CHLORIDE 0.9% 100 ML ONE (15:05)
[2020-11-28] MEDS: HydrALAZINE HCL 25 MG TABLET PO SCH ×2 (15:17→21:23)
[2020-11-28] MEDS: SOD FERRIC GLUC COMPLX/SUCROSE 125 MG in SODIUM CHLORIDE 0.9% 100 ML IV SCH (15:18)
[2020-11-28 16:18] LABS: APPEARANCE,SPUN,BODY FLUID CLEAR (CLEAR); APPEARANCE,UNSPUN,BODY FLUID CLOUDY (CLEAR); COLOR,BODY FLUID ORANGE (LT YELLOW); EOSINOPHILS,BF (ANAL) 0 %; LYMPHOCYTES,BODY FLUID 52 %; MONOCYTES,BODY FLUID 5 %; NEUTROPHILS,BODY FLUID 43 %; TOTAL VOLUME,BODY FLUID 750 mL; WBC, BODY FLUID 51 /cu. mm.
[2020-11-28 16:19] LABS: BASOPHILS,BODY FLUID 0 %
[2020-11-28 16:20] LABS: OTHER CELLS,BODY FLUID MESOTHELIALS; PH, BODY FLUID 8
[2020-11-28] MEDS: ACETAMINOPHEN 325 MG TABLET PO PRN ×2 (16:38→22:56)
[2020-11-28] MEDS: INSULIN LISPRO 100 UNITS/ML SQ PRN ×2 (18:00→21:40)
[2020-11-29 01:18] VITALS: BP 148/62
[2020-11-29 02:48] LABS: GLUCOMETER DEV NAME(LOC) 5N.1B; GLUCOSE,POINT OF CARE 217 MG/DL (70-110)
[2020-11-29 02:48] LABS: GLUCOMETER DEV NAME(LOC) 5N.1B; GLUCOSE,POINT OF CARE 262 MG/DL (70-110)
[2020-11-29 04:40] VITALS: BP 132/65
[2020-11-29 06:26] LABS: GLUCOMETER DEV NAME(LOC) 5N.3; GLUCOSE,POINT OF CARE 105 MG/DL (70-110)
[2020-11-29 06:58] LABS: BASOPHILS % (AUTO) 0.1 % (0.0-2.0); EOSINOPHILS % (AUTO) 0 % (1.0-6.0); HEMATOCRIT 23.5 % (41-53); HEMOGLOBIN 7.9 g/dL (13.5-17.5); LYMPHOCYTES # (AUTO) 0.7 K/uL (1.0-4.8); LYMPHOCYTES % (AUTO) 13.4 % (22.0-44.0); MEAN CORPUSCULAR HEMOGLOBIN 30.4 pg (26.0-34.0); MEAN CORPUSCULAR HGB CONC 33.7 G/dL (31.0-37.0); MEAN CORPUSCULAR VOLUME 90 fL (80-100); MONOCYTES # (AUTO) 0.5 K/uL (0.1-1.0); NEUTROPHILS # (AUTO) 3.8 K/uL (1.8-7.7); NEUTROPHILS % (AUTO) 76.5 % (40.0-70.0); PLATELET COUNT (AUTO) 238 K/uL (150-450); RED CELL DISTRIBUTION WIDTH 18.6 % (11.5-14.5)
[2020-11-29 07:46] LABS: GLUCOMETER DEV NAME(LOC) 5N.1B; GLUCOSE,POINT OF CARE 145 MG/DL (70-110)
[2020-11-29 07:50] VITALS: BP 165/55
[2020-11-29 08:08] LABS: ALBUMIN 2.4 g/dL (3.4-5.0); BILIRUBIN,TOTAL 0.6 mg/dL (0.1-1.0); C-REACTIVE PROTEIN QUANT 4.64 mg/dL (0.00-0.30); CALCIUM, TOTAL 9.3 mg/dL (8.8-10.5); CREATININE 4.17 mg/dL (0.60-1.30); POTASSIUM 3.8 mmol/L (3.5-5.1); TOTAL PROTEIN, SERUM 7.2 g/dL (6.4-8.2)
[2020-11-29] MEDS: DEXAMETHASONE SOD PHOS 4 MG/ML VIAL IVP SCH (09:41)
[2020-11-29] MEDS: EPOETIN ALFA 10,000 UNITS/ML VIAL SQ SCH (09:42)
[2020-11-29] MEDS: AmLODIPine BESYLATE 10 MG TABLET PO SCH (09:42)
[2020-11-29] MEDS: VITAMIN B COMP/VIT C/FOLIC ACID CAPSULE PO SCH (09:42)
[2020-11-29] MEDS: CARVEDILOL 12.5 MG TABLET PO SCH (09:42)
[2020-11-29] MEDS: ATORVASTATIN CALCIUM 40 MG TABLET PO SCH (09:42)
[2020-11-29] MEDS: FAMOTIDINE 20 MG TABLET PO SCH (09:42)
[2020-11-29] MEDS: CALCIUM ACETATE 667 MG CAPSULE PO SCH ×3 (09:42→18:00)
[2020-11-29] MEDS: HydrALAZINE HCL 25 MG TABLET PO SCH ×2 (09:42→16:00)
[2020-11-29 11:08] VITALS: BP 130/33
[2020-11-29] MEDS: INSULIN LISPRO 100 UNITS/ML SQ PRN ×2 (11:23→17:02)
[2020-11-29] MEDS: SOD FERRIC GLUC COMPLX/SUCROSE 125 MG in SODIUM CHLORIDE 0.9% 100 ML IV SCH (14:58)
[2020-11-29 16:00] VITALS: BP 177/71
[2020-11-29] MEDS: ACETAMINOPHEN 325 MG TABLET PO PRN (16:03)
[2020-11-29] MEDS ORDERED: HYDR25TA84 PO (19:57)
[2020-11-29] MEDS ORDERED: VITA-369 PO (19:58)
[2020-11-29 20:18] VITALS: BP 167/71
[2020-11-30 11:44] LABS: GLUCOMETER DEV NAME(LOC) 5N.1B; GLUCOSE,POINT OF CARE 176 MG/DL (70-110)
[2020-11-30 18:56] LABS: GLUCOMETER DEV NAME(LOC) 5S.1; GLUCOSE,POINT OF CARE 204 MG/DL (70-110)
[2020-12-03] MEDS ORDERED: ERGOCALCIFEROL (VIT D2) 50,000 UNITS [1,250 MCG] CAPSULE PO SCH (09:00)
== END 2020-11-29 20:30 | DRG 291 ==
LOC: EMS 11:48 → AHU 15:33 → ICUN 18:27 → 5N 11-27 15:52
PROVIDERS: ADMIT Hospitalist; ATTEND Hospitalist
PROC: 30233N1 Transfusion of Nonautologous Red Blood Cells into Peripheral Vein, Percutaneous Approach (ICD-10-PCS; 2020-11-26)
PROC: 3E02340 Introduction of Influenza Vaccine into Muscle, Percutaneous Approach (ICD-10-PCS; 2020-11-26)
PROC: 5A1D70Z Performance of Urinary Filtration, Intermittent, Less than 6 Hours Per Day (ICD-10-PCS; principal; 2020-11-27)
PROC: 0W9B3ZZ Drainage of Left Pleural Cavity, Percutaneous Approach (ICD-10-PCS; 2020-11-28)
PROC: 5A1D70Z Performance of Urinary Filtration, Intermittent, Less than 6 Hours Per Day (ICD-10-PCS; 2020-11-29)
DX: I13.2 Hypertensive heart and chronic kidney disease with heart failure and with stage 5 chronic kidney disease, or end stage renal disease (principal); I50.31 Acute diastolic (congestive) heart failure; J96.01 Acute respiratory failure with hypoxia; N18.6 End stage renal disease; E43 Unspecified severe protein-calorie malnutrition; E87.1 Hypo-osmolality and hyponatremia; E11.22 Type 2 diabetes mellitus with diabetic chronic kidney disease; I73.9 Peripheral vascular disease, unspecified; D63.1 Anemia in chronic kidney disease; E11.51 Type 2 diabetes mellitus with diabetic peripheral angiopathy without gangrene; E78.00 Pure hypercholesterolemia, unspecified; E78.5 Hyperlipidemia, unspecified; E87.6 Hypokalemia; I25.10 Atherosclerotic heart disease of native coronary artery without angina pectoris; Z20.822 Contact with and (suspected) exposure to COVID-19; E87.70 Fluid overload, unspecified; Z79.4 Long term (current) use of insulin; Z79.82 Long term (current) use of aspirin; Z79.899 Other long term (current) drug therapy; Z83.3 Family history of diabetes mellitus; Z89.512 Acquired absence of left leg below knee; Z89.511 Acquired absence of right leg below knee; Z99.2 Dependence on renal dialysis; Z68.20 Body mass index [BMI] 20.0-20.9, adult; Z23 Encounter for immunization
CPT/HCPCS: 32555; 36430; 36600; 71275; 76942; 82270; 82465; 82728; 82805; 82945; 82948; 83540; 83550; 83615; 83735; 83986; 84100; 84145; 84157; 85379; 86140; 86850; 86900; 86901; 86923; 87015; 87040; 87070; 87101; 87205; 87206; 87426; 89051; 93005; 99291; G0378; J0360; J0885; J1100; J2543; J2916; J3370; J7030; J7050; J7060; P9016; 36415-L1; 36415-TC; 71045-TC; U0003

== ENCOUNTER 2022-06-01 22:10 | Inpatient (IN) | payer MEDICARE, MEDICAID ==
[~2022-06-01] VITALS: Ht 175.3 cm; Wt 42.5 kg
[~2022-06-01 22:10] MED LIST changes: -ASPI-1450 PO; +AUD NEB; +BISA10SU11 PR; +DOCU-385 PO; +DOXE4VIA IV; +EPOE10I SQ; -FAMO20 PO; +FERRHI IV; +HEPA500018 SQ; +HYDR-4061 PO; +HYDR50TA36 PO; -INSU100V SQ; +IPRNEB IH; +LACT1TAB15 PO; +PANT-31 PO; +VITA-369 PO
[2022-06-01 22:46] LABS: COVID AG,FIA SOURCE NASOPHARYNGEAL
[2022-06-01 22:47] LABS: EOSINOPHILS % (AUTO) 0.3 % (1.0-6.0); HEMATOCRIT 24.5 % (41-53); HEMOGLOBIN 8.1 g/dL (13.5-17.5); LYMPHOCYTES # (AUTO) 0.3 K/uL (1.0-4.8); LYMPHOCYTES % (AUTO) 4.2 % (22.0-44.0); MEAN CORPUSCULAR HEMOGLOBIN 30.5 pg (26.0-34.0); MEAN CORPUSCULAR HGB CONC 33.2 G/dL (31.0-37.0); MEAN CORPUSCULAR VOLUME 92 fL (80-100); MONOCYTES # (AUTO) 0.2 K/uL (0.1-1.0); NEUTROPHILS # (AUTO) 5.4 K/uL (1.8-7.7); PLATELET COUNT (AUTO) 241 K/uL (150-450); RED BLOOD CELL COUNT(AUTO) 2.66 MIL/uL (4.50-5.90); RED CELL DISTRIBUTION WIDTH 25.7 % (11.5-14.5)
[2022-06-01 22:55] LABS: ANION GAP 1 mmol/L (8-16); CALCIUM, TOTAL 9.9 mg/dL (8.8-10.5); CARBON DIOXIDE 34 mmol/L (22-29); CHLORIDE 98 mmol/L (98-107); CREATININE 1.42 mg/dL (0.60-1.30); GLUCOSE,RANDOM 161 mg/dL (70-110); NEUTROPHILS % (AUTO) 90.5 % (40.0-70.0); POTASSIUM 3.2 mmol/L (3.5-5.1); SODIUM SERUM 133 mmol/L (136-145); UREA NITROGEN, BLOOD 25 mg/dL (7-18)
[2022-06-01 22:56] LABS: GLOMERULAR FILTR. RATE CALC 50 mL/min (>60)
[2022-06-01 22:59] LABS: INR 1.2 (0.9-1.1); PROTHROMBIN TIME 12.3 SEC (9.4-11.6)
[2022-06-01 23:01] LABS: ALANINE AMINOTRANSFERASE 19 U/L (12-78); ALBUMIN 1.8 g/dL (3.4-5.0); ALKALINE PHOSPHATASE 89 U/L (46-116); ASPARTATE AMINOTRANSFERASE 24 U/L (15-37); BILIRUBIN,TOTAL 0.5 mg/dL (0.1-1.0); CREATINE KINASE, TOTAL ONLY 54 U/L (39-308); TOTAL PROTEIN, SERUM 8.6 g/dL (6.4-8.2)
[2022-06-01 23:06] LABS: B-TYPE NATRIURETIC PEPTIDE > 5000 pg/mL (0-100)
[2022-06-01 23:10] LABS: INFLUENZA TYPE A NEGATIVE FOR TYPE A (NEGATIVE); INFLUENZA TYPE B NEGATIVE FOR TYPE B (NEGATIVE)
[2022-06-01 23:14] LABS: ABG BASE EXCESS 9.4 mmol/L (-2.0-3.0); ABG CARBOXYHEMOGLOBIN 2.8 % (0.0-1.5); ABG HCO3 32.1 mmol/L (22.0-26.0); ABG METHEMOGLOBIN 0.3 % (0.0-1.5); ABG OXYGEN CONTENT 11.6 mL/dL (15.0-23.0); ABG OXYGEN SATURATION 99.7 % (95.0-98.0); ABG OXYHEMOGLOBIN 96.6 % (94.0-100.0); ABG PCO2 56 mmHg (35-45); ABG PH 7.401 (7.35-7.450); ABG TOTAL HEMOGLOBIN 8.2 G/dL (12.0-18.0); PO2, ARTERIAL BG 171.5 mmHg (79.0-87.0); SITE, BLOOD GAS RT BRACHIAL; SOURCE, BLOOD GAS ARTERIAL; TEMPERATURE, FAHRENHEIT, BG 98.5 FAHREN (96.0-98.6)
[2022-06-01 23:15] LABS: O2 DEVICE,BLOOD GAS NRB (ROOM AIR)
[2022-06-01] MEDS ORDERED: PIPERACILLIN/TAZO 3.375 GM/D5W 50 ML IV ONE (23:30)
[2022-06-01] MEDS ORDERED: AZITHROMYCIN 500 MG/NS 250 ML IV ONE (23:30)
[2022-06-01] MEDS ORDERED: VANCOMYCIN 1GM/WATER(PEG/NADA) 200 ML IV ONE (23:30)
[2022-06-02] VITALS (10 sets, daily range): BP systolic 104–193; BP diastolic 43–64
[2022-06-02] MEDS ORDERED: MAGNESIUM HYDROXIDE SUSPENSION 30 ML UDCUP PO PRN
[2022-06-02] MEDS ORDERED: BISACODYL 10 MG RECTAL RECTAL SUPPOSITORY PR PRN
[2022-06-02] MEDS ORDERED: ALBUTEROL SULFATE 2.5 MG/0.5 ML NEB SOLUTION NEB PRN
[2022-06-02 01:06] LABS: ABG BASE EXCESS 6.8 mmol/L (-2.0-3.0); ABG CARBOXYHEMOGLOBIN 2.8 % (0.0-1.5); ABG HCO3 29.7 mmol/L (22.0-26.0); ABG METHEMOGLOBIN 0.3 % (0.0-1.5); ABG OXYGEN CONTENT 10.8 mL/dL (15.0-23.0); ABG OXYGEN SATURATION 94.6 % (95.0-98.0); ABG OXYHEMOGLOBIN 91.7 % (94.0-100.0); ABG PCO2 59 mmHg (35-45); ABG PH 7.356 (7.35-7.450); ABG TOTAL HEMOGLOBIN 8.3 G/dL (12.0-18.0); PO2, ARTERIAL BG 77.9 mmHg (79.0-87.0); SOURCE, BLOOD GAS ARTERIAL; TEMPERATURE, FAHRENHEIT, BG 98.5 FAHREN (96.0-98.6)
[2022-06-02 01:07] LABS: O2 DEVICE,BLOOD GAS CANNULA (ROOM AIR); SITE, BLOOD GAS RT BRACHIAL
[2022-06-02] MEDS: HEPARIN SODIUM,PORCINE 5,000 UNITS/ML VIAL SQ SCH ×3 (01:57→16:00)
[2022-06-02] MEDS ORDERED: SODIUM CHLORIDE 0.9% 250 ML IV ONE (03:03)
[2022-06-02 06:33] LABS: BASOPHILS % (AUTO) 0.5 % (0.0-2.0); EOSINOPHILS % (AUTO) 0.2 % (1.0-6.0); HEMATOCRIT 23.1 % (41-53); HEMOGLOBIN 7.5 g/dL (13.5-17.5); LYMPHOCYTES # (AUTO) 0.1 K/uL (1.0-4.8); MEAN CORPUSCULAR HEMOGLOBIN 30.8 pg (26.0-34.0); MEAN CORPUSCULAR HGB CONC 32.7 G/dL (31.0-37.0); MEAN CORPUSCULAR VOLUME 94 fL (80-100); MONOCYTES # (AUTO) 0.3 K/uL (0.1-1.0); MONOCYTES % (AUTO) 4.4 % (2.0-9.0); NEUTROPHILS # (AUTO) 6.1 K/uL (1.8-7.7); PLATELET COUNT (AUTO) 216 K/uL (150-450); RED BLOOD CELL COUNT(AUTO) 2.45 MIL/uL (4.50-5.90); RED CELL DISTRIBUTION WIDTH 25.2 % (11.5-14.5)
[2022-06-02 06:49] LABS: CALCIUM, TOTAL 9.1 mg/dL (8.8-10.5); CREATININE 1.62 mg/dL (0.60-1.30); POTASSIUM 3.2 mmol/L (3.5-5.1)
[2022-06-02 06:52] LABS: NEUTROPHILS % (AUTO) 92.9 % (40.0-70.0)
[2022-06-02] MEDS: HydrALAZINE HCL 50 MG TABLET PO SCH ×4 (09:00→20:14)
[2022-06-02] MEDS: VITAMIN B COMPLEX/FOLIC ACID 1 TABLET PO SCH (09:00)
[2022-06-02] MEDS: AmLODIPine BESYLATE 10 MG TABLET PO SCH (09:00)
[2022-06-02] MEDS: CARVEDILOL 12.5 MG TABLET PO SCH ×2 (09:00→20:14)
[2022-06-02] MEDS ORDERED: SODIUM CHLORIDE 0.9% 2,000 ML ONE (09:11)
[2022-06-02] MEDS: CALCIUM ACETATE 667 MG CAPSULE PO SCH ×3 (11:25→18:00)
[2022-06-02] MEDS: PANTOPRAZOLE SODIUM 40 MG DR TABLET PO SCH (11:26)
[2022-06-02] MEDS: HYDROCODONE/ACETAMINOPHEN 5-325 MG TABLET PO PRN ×2 (11:26→22:30)
[2022-06-02] MEDS: ATORVASTATIN CALCIUM 40 MG TABLET PO SCH (11:26)
[2022-06-02] MEDS: DOCUSATE SODIUM 100 MG CAPSULE PO SCH ×2 (11:27→20:14)
[2022-06-02 11:32] LABS: CREATININE 1.76 mg/dL (0.60-1.30)
[2022-06-03] VITALS (11 sets, daily range): BP systolic 140–211; BP diastolic 54–91
[2022-06-03] MEDS: HEPARIN SODIUM,PORCINE 5,000 UNITS/ML VIAL SQ SCH ×4 (00:20→23:39)
[2022-06-03] MEDS: HYDROCODONE/ACETAMINOPHEN 5-325 MG TABLET PO PRN ×2 (04:38→17:10)
[2022-06-03] MEDS ORDERED: CloNIDine HCL 0.1 MG TABLET PO ONE (05:00)
[2022-06-03 06:54] LABS: BASOPHILS % (AUTO) 0.5 % (0.0-2.0); EOSINOPHILS % (AUTO) 0.2 % (1.0-6.0); HEMOGLOBIN 8.3 g/dL (13.5-17.5); LYMPHOCYTES # (AUTO) 0.3 K/uL (1.0-4.8); LYMPHOCYTES % (AUTO) 5.9 % (22.0-44.0); MEAN CORPUSCULAR HGB CONC 33.2 G/dL (31.0-37.0); MEAN CORPUSCULAR VOLUME 94 fL (80-100); MONOCYTES # (AUTO) 0.2 K/uL (0.1-1.0); MONOCYTES % (AUTO) 3.3 % (2.0-9.0); NEUTROPHILS # (AUTO) 4.5 K/uL (1.8-7.7); PLATELET COUNT (AUTO) 261 K/uL (150-450); RED BLOOD CELL COUNT(AUTO) 2.67 MIL/uL (4.50-5.90); RED CELL DISTRIBUTION WIDTH 24.8 % (11.5-14.5)
[2022-06-03 06:55] LABS: NEUTROPHILS % (AUTO) 90.1 % (40.0-70.0)
[2022-06-03 07:00] LABS: CALCIUM, TOTAL 9.3 mg/dL (8.8-10.5); CREATININE 2.38 mg/dL (0.60-1.30); POTASSIUM 3.9 mmol/L (3.5-5.1)
[2022-06-03] MEDS: DOCUSATE SODIUM 100 MG CAPSULE PO SCH ×2 (08:38→20:03)
[2022-06-03] MEDS: PANTOPRAZOLE SODIUM 40 MG DR TABLET PO SCH (08:38)
[2022-06-03] MEDS: AmLODIPine BESYLATE 10 MG TABLET PO SCH (08:38)
[2022-06-03] MEDS: CALCIUM ACETATE 667 MG CAPSULE PO SCH ×3 (08:39→17:03)
[2022-06-03] MEDS: HydrALAZINE HCL 50 MG TABLET PO SCH ×4 (08:39→20:03)
[2022-06-03] MEDS: ATORVASTATIN CALCIUM 40 MG TABLET PO SCH (08:39)
[2022-06-03] MEDS: CARVEDILOL 12.5 MG TABLET PO SCH ×2 (08:39→20:03)
[2022-06-03] MEDS: VITAMIN B COMPLEX/FOLIC ACID 1 TABLET PO SCH (08:39)
[2022-06-03] MEDS: ACETAMINOPHEN 325 MG TABLET PO PRN ×2 (10:40→23:40)
[2022-06-03] MEDS ORDERED: SODIUM CHLORIDE 0.9% 1,000 ML ONE (16:25)
[2022-06-03] MEDS: HydrOXYzine HCL 25 MG TABLET PO PRN (17:47)
[2022-06-03] MEDS ORDERED: HydrALAZINE HCL 20 MG/ML VIAL IVP ONE (19:15)
[2022-06-03] MEDS: ZOLPIDEM TARTRATE 5 MG TABLET PO PRN (23:39)
[2022-06-04 00:28] VITALS: BP 202/71
[2022-06-04] MEDS: HYDROCODONE/ACETAMINOPHEN 5-325 MG TABLET PO PRN ×2 (02:43→20:35)
[2022-06-04 04:36] VITALS: BP 186/74
[2022-06-04] MEDS: MORPHINE SULFATE 2 MG/ML SYRINGE IVP PRN (05:38)
[2022-06-04 06:28] LABS: BASOPHILS % (AUTO) 0.8 % (0.0-2.0); EOSINOPHILS % (AUTO) 0.4 % (1.0-6.0); HEMATOCRIT 27.3 % (41-53); HEMOGLOBIN 8.9 g/dL (13.5-17.5); LYMPHOCYTES # (AUTO) 0.3 K/uL (1.0-4.8); LYMPHOCYTES % (AUTO) 6.3 % (22.0-44.0); MEAN CORPUSCULAR HEMOGLOBIN 30.3 pg (26.0-34.0); MEAN CORPUSCULAR HGB CONC 32.8 G/dL (31.0-37.0); MEAN CORPUSCULAR VOLUME 92 fL (80-100); MONOCYTES # (AUTO) 0.3 K/uL (0.1-1.0); NEUTROPHILS # (AUTO) 4.4 K/uL (1.8-7.7); PLATELET COUNT (AUTO) 327 K/uL (150-450); RED BLOOD CELL COUNT(AUTO) 2.95 MIL/uL (4.50-5.90); RED CELL DISTRIBUTION WIDTH 24.3 % (11.5-14.5)
[2022-06-04 06:42] LABS: CREATININE 2.1 mg/dL (0.60-1.30)
[2022-06-04 07:07] VITALS: BP 188/86
[2022-06-04 07:32] LABS: NEUTROPHILS % (AUTO) 87.5 % (40.0-70.0)
[2022-06-04] MEDS: HydrALAZINE HCL 50 MG TABLET PO SCH ×4 (08:54→20:34)
[2022-06-04] MEDS: AmLODIPine BESYLATE 10 MG TABLET PO SCH (08:54)
[2022-06-04] MEDS: VITAMIN B COMPLEX/FOLIC ACID 1 TABLET PO SCH (08:54)
[2022-06-04] MEDS: CALCIUM ACETATE 667 MG CAPSULE PO SCH ×3 (08:55→17:25)
[2022-06-04] MEDS: PANTOPRAZOLE SODIUM 40 MG DR TABLET PO SCH (08:55)
[2022-06-04] MEDS: CARVEDILOL 12.5 MG TABLET PO SCH ×2 (08:55→20:35)
[2022-06-04] MEDS: ATORVASTATIN CALCIUM 40 MG TABLET PO SCH (08:55)
[2022-06-04] MEDS: DOCUSATE SODIUM 100 MG CAPSULE PO SCH ×2 (08:56→20:40)
[2022-06-04] MEDS: HEPARIN SODIUM,PORCINE 5,000 UNITS/ML VIAL SQ SCH ×2 (08:56→17:25)
[2022-06-04] MEDS: ONDANSETRON HCL 4 MG/2 ML VIAL IVP PRN (08:56)
[2022-06-04 10:57] VITALS: BP 172/72
[2022-06-04] MEDS: HydrOXYzine HCL 25 MG TABLET PO PRN ×2 (11:38→17:32)
[2022-06-04 16:02] VITALS: BP 152/51
[2022-06-04] MEDS: ACETAMINOPHEN 325 MG TABLET PO PRN (17:32)
[2022-06-04 19:46] VITALS: BP 168/70
[2022-06-04] MEDS: ZOLPIDEM TARTRATE 5 MG TABLET PO PRN (20:34)
[2022-06-05] VITALS (13 sets, daily range): BP systolic 14–206; BP diastolic 43–90
[2022-06-05] MEDS: HEPARIN SODIUM,PORCINE 5,000 UNITS/ML VIAL SQ SCH ×4 (00:29→23:02)
[2022-06-05] MEDS: HydrOXYzine HCL 25 MG TABLET PO PRN ×3 (01:33→14:22)
[2022-06-05] MEDS: HydrALAZINE HCL 20 MG/ML VIAL IVP PRN (06:26)
[2022-06-05] MEDS: VITAMIN B COMPLEX/FOLIC ACID 1 TABLET PO SCH (08:21)
[2022-06-05] MEDS: HydrALAZINE HCL 50 MG TABLET PO SCH ×4 (08:21→22:43)
[2022-06-05] MEDS: DOCUSATE SODIUM 100 MG CAPSULE PO SCH ×2 (08:21→22:44)
[2022-06-05] MEDS: CALCIUM ACETATE 667 MG CAPSULE PO SCH ×3 (08:21→17:33)
[2022-06-05] MEDS: PANTOPRAZOLE SODIUM 40 MG DR TABLET PO SCH (08:22)
[2022-06-05] MEDS: CARVEDILOL 12.5 MG TABLET PO SCH ×2 (08:22→22:44)
[2022-06-05] MEDS: AmLODIPine BESYLATE 10 MG TABLET PO SCH (08:22)
[2022-06-05] MEDS: HYDROCODONE/ACETAMINOPHEN 5-325 MG TABLET PO PRN ×4 (08:22→22:02)
[2022-06-05] MEDS: ATORVASTATIN CALCIUM 40 MG TABLET PO SCH (08:22)
[2022-06-05] MEDS ORDERED: NIFEdipine 60 MG ER TABLET PO ONE (13:45)
[2022-06-05] MEDS: MORPHINE SULFATE 2 MG/ML SYRINGE IVP PRN ×2 (14:23→19:36)
[2022-06-05] MEDS: ONDANSETRON HCL 4 MG/2 ML VIAL IVP PRN (14:33)
[2022-06-05] MEDS ORDERED: SODIUM CHLORIDE 0.9% 2,000 ML ONE (17:49)
[2022-06-05] MEDS ORDERED: NIFEdipine 60 MG ER TABLET PO SCH (21:00)
[2022-06-06] MEDS: HydrOXYzine HCL 25 MG TABLET PO PRN (03:03)
[2022-06-06 03:09] VITALS: BP 123/45
[2022-06-06 07:48] VITALS: BP 142/48
[2022-06-06] MEDS: ATORVASTATIN CALCIUM 40 MG TABLET PO SCH (08:12)
[2022-06-06] MEDS: DOCUSATE SODIUM 100 MG CAPSULE PO SCH ×2 (08:12→20:17)
[2022-06-06] MEDS: HEPARIN SODIUM,PORCINE 5,000 UNITS/ML VIAL SQ SCH ×3 (08:12→23:15)
[2022-06-06] MEDS: CARVEDILOL 12.5 MG TABLET PO SCH ×2 (08:12→20:17)
[2022-06-06] MEDS: HydrALAZINE HCL 50 MG TABLET PO SCH ×4 (08:12→20:16)
[2022-06-06] MEDS: NIFEdipine 30 MG ER TABLET PO SCH (08:12)
[2022-06-06] MEDS: CALCIUM ACETATE 667 MG CAPSULE PO SCH ×3 (08:12→17:36)
[2022-06-06] MEDS: VITAMIN B COMPLEX/FOLIC ACID 1 TABLET PO SCH (08:12)
[2022-06-06] MEDS: PANTOPRAZOLE SODIUM 40 MG DR TABLET PO SCH (08:12)
[2022-06-06] MEDS: HYDROCODONE/ACETAMINOPHEN 5-325 MG TABLET PO PRN ×4 (08:13→21:50)
[2022-06-06 11:27] VITALS: BP 162/57
[2022-06-06] MEDS: MORPHINE SULFATE 2 MG/ML SYRINGE IVP PRN ×2 (12:43→20:01)
[2022-06-06 13:03] LABS: EOSINOPHILS % (AUTO) 0.6 % (1.0-6.0); HEMATOCRIT 27.7 % (41-53); HEMOGLOBIN 9.1 g/dL (13.5-17.5); LYMPHOCYTES # (AUTO) 0.4 K/uL (1.0-4.8); LYMPHOCYTES % (AUTO) 8.7 % (22.0-44.0); MEAN CORPUSCULAR HEMOGLOBIN 30.5 pg (26.0-34.0); MEAN CORPUSCULAR HGB CONC 32.7 G/dL (31.0-37.0); MEAN CORPUSCULAR VOLUME 93 fL (80-100); MONOCYTES # (AUTO) 0.2 K/uL (0.1-1.0); MONOCYTES % (AUTO) 5.4 % (2.0-9.0); NEUTROPHILS # (AUTO) 3.7 K/uL (1.8-7.7); NEUTROPHILS % (AUTO) 84.3 % (40.0-70.0); PLATELET COUNT (AUTO) 319 K/uL (150-450); RED BLOOD CELL COUNT(AUTO) 2.98 MIL/uL (4.50-5.90); RED CELL DISTRIBUTION WIDTH 24.2 % (11.5-14.5)
[2022-06-06 13:11] LABS: CALCIUM, TOTAL 8.9 mg/dL (8.8-10.5); CREATININE 2.39 mg/dL (0.60-1.30); POTASSIUM 4.3 mmol/L (3.5-5.1)
[2022-06-06 13:18] LABS: ALBUMIN 1.9 g/dL (3.4-5.0); BILIRUBIN,TOTAL 0.4 mg/dL (0.1-1.0); TOTAL PROTEIN, SERUM 8.4 g/dL (6.4-8.2)
[2022-06-06 15:40] VITALS: BP 170/48
[2022-06-06 20:25] VITALS: BP 174/68
[2022-06-07] VITALS (11 sets, daily range): BP systolic 116–199; BP diastolic 49–92
[2022-06-07] MEDS: MORPHINE SULFATE 2 MG/ML SYRINGE IVP PRN ×3 (01:24→21:34)
[2022-06-07] MEDS: HydrALAZINE HCL 20 MG/ML VIAL IVP PRN (03:36)
[2022-06-07] MEDS: HYDROCODONE/ACETAMINOPHEN 5-325 MG TABLET PO PRN ×3 (03:37→22:28)
[2022-06-07] MEDS: VITAMIN B COMPLEX/FOLIC ACID 1 TABLET PO SCH (08:39)
[2022-06-07] MEDS: ATORVASTATIN CALCIUM 40 MG TABLET PO SCH (08:39)
[2022-06-07] MEDS: CARVEDILOL 12.5 MG TABLET PO SCH ×2 (08:39→21:38)
[2022-06-07] MEDS: CALCIUM ACETATE 667 MG CAPSULE PO SCH ×3 (08:39→15:58)
[2022-06-07] MEDS: NIFEdipine 30 MG ER TABLET PO SCH (08:39)
[2022-06-07] MEDS: HydrALAZINE HCL 50 MG TABLET PO SCH ×4 (08:40→21:37)
[2022-06-07] MEDS: DOCUSATE SODIUM 100 MG CAPSULE PO SCH ×2 (08:41→21:38)
[2022-06-07] MEDS: PANTOPRAZOLE SODIUM 40 MG DR TABLET PO SCH (08:41)
[2022-06-07] MEDS: HEPARIN SODIUM,PORCINE 5,000 UNITS/ML VIAL SQ SCH ×3 (08:41→23:06)
[2022-06-07] MEDS ORDERED: EPOETIN ALFA 10,000 UNITS/ML 2 ML VIAL SQ SCH (09:00)
[2022-06-07] MEDS ORDERED: BUSP15 PO (17:54)
[2022-06-07] MEDS ORDERED: ASPI-1450 PO (17:54)
[2022-06-07] MEDS ORDERED: ONDA-104 PO (17:54)
[2022-06-07] MEDS ORDERED: SIME80TA82 PO (17:54)
[2022-06-07] MEDS ORDERED: HYDR-4527 PO (17:54)
[2022-06-07] MEDS ORDERED: NIFE90TA91 PO (17:54)
[2022-06-07] MEDS ORDERED: DULO-113 PO (17:54)
[2022-06-07] MEDS ORDERED: CLON1PAT13 TD (17:54)
[2022-06-07] MEDS ORDERED: TRAZ150T80 PO (17:54)
[2022-06-07] MEDS ORDERED: LISI-894 PO (17:54)
[2022-06-07] MEDS ORDERED: TEMA15CA PO (17:54)
[2022-06-07] MEDS ORDERED: SODIUM CHLORIDE 0.9% 250 ML IV ONE (20:47)
[2022-06-08 01:06] VITALS: BP 172/61
[2022-06-08] MEDS: HydrALAZINE HCL 20 MG/ML VIAL IVP PRN (05:43)
[2022-06-08 05:44] VITALS: BP 182/64
[2022-06-08 06:35] LABS: EOSINOPHILS % (AUTO) 0.2 % (1.0-6.0); HEMATOCRIT 28.7 % (41-53); HEMOGLOBIN 9.3 g/dL (13.5-17.5); LYMPHOCYTES # (AUTO) 0.4 K/uL (1.0-4.8); LYMPHOCYTES % (AUTO) 7.2 % (22.0-44.0); MEAN CORPUSCULAR HEMOGLOBIN 30.4 pg (26.0-34.0); MEAN CORPUSCULAR HGB CONC 32.3 G/dL (31.0-37.0); MEAN CORPUSCULAR VOLUME 94 fL (80-100); MONOCYTES # (AUTO) 0.3 K/uL (0.1-1.0); MONOCYTES % (AUTO) 5.5 % (2.0-9.0); NEUTROPHILS # (AUTO) 4.8 K/uL (1.8-7.7); PLATELET COUNT (AUTO) 328 K/uL (150-450); RED BLOOD CELL COUNT(AUTO) 3.05 MIL/uL (4.50-5.90)
[2022-06-08] MEDS: HydrOXYzine HCL 25 MG TABLET PO PRN (06:37)
[2022-06-08 06:40] LABS: NEUTROPHILS % (AUTO) 86.1 % (40.0-70.0)
[2022-06-08 06:52] LABS: ALBUMIN 1.9 g/dL (3.4-5.0); BILIRUBIN,TOTAL 0.4 mg/dL (0.1-1.0); CALCIUM, TOTAL 9.1 mg/dL (8.8-10.5); CREATININE 2.15 mg/dL (0.60-1.30); POTASSIUM 4.5 mmol/L (3.5-5.1); TOTAL PROTEIN, SERUM 8.5 g/dL (6.4-8.2)
[2022-06-08] MEDS: HYDROCODONE/ACETAMINOPHEN 5-325 MG TABLET PO PRN ×2 (08:00→12:03)
[2022-06-08] MEDS: PANTOPRAZOLE SODIUM 40 MG DR TABLET PO SCH (08:00)
[2022-06-08] MEDS: CARVEDILOL 12.5 MG TABLET PO SCH (08:01)
[2022-06-08] MEDS: NIFEdipine 30 MG ER TABLET PO SCH (08:03)
[2022-06-08] MEDS: CALCIUM ACETATE 667 MG CAPSULE PO SCH ×2 (08:03→13:00)
[2022-06-08] MEDS: VITAMIN B COMPLEX/FOLIC ACID 1 TABLET PO SCH (08:03)
[2022-06-08] MEDS: HydrALAZINE HCL 50 MG TABLET PO SCH ×2 (08:03→13:00)
[2022-06-08] MEDS: DOCUSATE SODIUM 100 MG CAPSULE PO SCH (08:04)
[2022-06-08] MEDS: ATORVASTATIN CALCIUM 40 MG TABLET PO SCH (08:04)
[2022-06-08] MEDS: HEPARIN SODIUM,PORCINE 5,000 UNITS/ML VIAL SQ SCH (08:04)
[2022-06-08 08:09] VITALS: BP 188/82
[2022-06-08 11:24] VITALS: BP 156/76
[2022-06-08] MEDS ORDERED: EPOE10003 SQ (14:30)
[2022-06-08] MEDS ORDERED: HYDR50TA36 PO (14:33)
[2022-06-08] MEDS ORDERED: SIME80TA82 PO (14:42)
[2022-06-08 17:41] LABS: GLUCOMETER DEV NAME(LOC) 5N.1C; GLUCOSE,POINT OF CARE 145 MG/DL (70-110)
== END 2022-06-08 16:10 | DRG 291 ==
LOC: EMS 22:10 → 5S 06-02 00:08
PROVIDERS: ADMIT Internal Medicine; ATTEND Internal Medicine
PROC: 5A1D70Z Performance of Urinary Filtration, Intermittent, Less than 6 Hours Per Day (ICD-10-PCS; principal; 2022-06-02)
PROC: 5A1D70Z Performance of Urinary Filtration, Intermittent, Less than 6 Hours Per Day (ICD-10-PCS; 2022-06-03)
PROC: 5A1D70Z Performance of Urinary Filtration, Intermittent, Less than 6 Hours Per Day (ICD-10-PCS; 2022-06-05)
PROC: 5A1D70Z Performance of Urinary Filtration, Intermittent, Less than 6 Hours Per Day (ICD-10-PCS; 2022-06-07)
DX: I13.2 Hypertensive heart and chronic kidney disease with heart failure and with stage 5 chronic kidney disease, or end stage renal disease (principal); E43 Unspecified severe protein-calorie malnutrition; J18.9 Pneumonia, unspecified organism; I50.31 Acute diastolic (congestive) heart failure; J96.01 Acute respiratory failure with hypoxia; N18.6 End stage renal disease; E87.2 Acidosis; J91.8 Pleural effusion in other conditions classified elsewhere; Z68.1 Body mass index [BMI] 19.9 or less, adult; E11.51 Type 2 diabetes mellitus with diabetic peripheral angiopathy without gangrene; E11.22 Type 2 diabetes mellitus with diabetic chronic kidney disease; D63.1 Anemia in chronic kidney disease; E78.5 Hyperlipidemia, unspecified; E87.6 Hypokalemia; Z20.822 Contact with and (suspected) exposure to COVID-19; R59.0 Localized enlarged lymph nodes; F41.9 Anxiety disorder, unspecified; I25.10 Atherosclerotic heart disease of native coronary artery without angina pectoris; Z79.899 Other long term (current) drug therapy; Z89.511 Acquired absence of right leg below knee; Z89.512 Acquired absence of left leg below knee; Z99.2 Dependence on renal dialysis
CPT/HCPCS: 36600; 71045; 71250; 80048; 80053; 82550; 82565; 82805; 82962; 83735; 83880; 84100; 84145; 84484; 84520; 85025; 85610; 85730; 87040; 87081; 87340; 87804; 90935; 93005; 94640; 99291; J0360; J0456; J0885; J1644; J2270; J2405; J2543; J7030; J7050; Q9967; 36415-L1; 36415-TC